=== PATIENT | male | born 1935 | race Caucasian/White ===

== ENCOUNTER 2022-05-29 06:47 | Emergency (ER) | payer OTHER, SELFPAY ==
[2022-05-29 07:10] VITALS: BP 166/90; PULSE 64; RESP 16; TEMP 36.2; O2SAT 96; BMI 28.9
[2022-05-29 07:21] VITALS: PULSE 68
--- NOTE | 2022-05-29 07:40 | PC.NURSE ---
Dr Quinonez with pt
--- NOTE | 2022-05-29 07:52 | XR_ITS ---
Final Report Patient: TIMO UGALDE Facility:?[facility] Patient ID:?[id number] Site Patient ID:?[id number]. Site :?[id number] Study:?XRay Knee Right 3 VIEW-05/29/2022 8:21:52 AM Ordering Physician:Jose Alberto Candelario Final Report: Indication: Right knee pain, heard pop while getting out of bow, recent meniscus surgery. Technique: Three views. Comparison: None. Findings/Impression: No fracture or malalignment. No joint space narrowing. Small patellar osteophyte. Small knee joint effusion. 8 millimeter linear radiopaque foreign body in the posterior lateral soft tissues posterior and lateral to the proximal fibula. Vascular calcification. Dictated by Piyush Lindsey MD @ 05/29/2022 8:36:52 AM (Electronic Signature)
--- NOTE | 2022-05-29 07:52 | US_ITS ---
Final Report Patient: TIMO UGALDE Facility:?[facility] Patient ID:?[id number] Site Patient ID:?[id number]. Site :?[id number] Study:?US Extremity Right DVT-05/29/2022 8:53:10 AM Ordering Physician:Jose Alberto Candelario Final Report: INDICATION: Leg pain and swelling. TECHNIQUE: Ultrasound venous duplex lower right extremity. Compression venous exam was performed using dinero-scale, color Doppler, and spectral Doppler analysis. COMPARISON: None. FINDINGS: Deep veins: Sonographic imaging demonstrates the right common femoral, deep femoral, superficial femoral, popliteal, posterior tibial and the contralateral left common femoral veins to be fully compressible with normal color Doppler blood flow. Superficial veins: Greater saphenous vein is fully compressible. Small fluid collection posterior to the knee likely small Flores cyst. IMPRESSION: No evidence of deep venous thrombosis. Dictated by Piyush Lindsey MD @ 05/29/2022 8:58:32 AM (Electronic Signature)
--- NOTE | 2022-05-29 07:55 | ED.GENADULT ---
HPI - General Adult General Time Seen by Provider: 07:55 Date Seen: 05/29/22 Chief complaint: Extremity Pain/Injury, Lower Stated complaint: Right Leg Injury Time Seen by Provider: 05/29/22 07:20 Source: patient Mode of arrival: ambulatory History of Present Illness HPI narrative: Patient is a 87-year-old white male presents after fishing in [place] he was getting out of his boat and hurt his right knee. It has been pain free when he sits but when he stands or walks he gets some pain in his upper calf and knee area. He denies fevers chills, shortness of breath, chest pain. He has not been sick with an illness. This seemed to be traumatic in nature, happen before he returned as mentioned getting in and out of a boat. No history of clotting problems. His chart was reviewed Onset (ago): day(s) Location: right and lower extremity Severity: moderate Quality: aching Relieving factors: other (Sitting relieves discomfort) Exacerbating factors: movement Related Data Home Medications Medication Instructions Recorded Confirmed famotidine 20 mg tablet mg 05/29/22 ferrous sulfate 325 mg (65 mg mg 05/29/22 iron) tablet (FeroSul) fluticasone propionate 50 INTRANASAL 05/29/22 mcg/actuation nasal spray,suspension metoprolol tartrate 25 mg tablet mg 05/29/22 nitroglycerin 0.4 mg sublingual mg 05/29/22 tablet omeprazole 20 mg capsule,delayed mg 05/29/22 release omeprazole 40 mg capsule,delayed mg 05/29/22 release simvastatin 40 mg tablet mg 05/29/22 tamsulosin 0.4 mg capsule mg PO 05/29/22 Allergies Allergy/AdvReac Type Severity Reaction Status Date / Time No Known Drug Allergies Allergy Verified 05/29/22 07:10 Review of Systems Narrative: Negative for cardiopulmonary GI neurologic skin other mentioned above. [facility] Social History Smoking Status: Unknown if ever smoked Second hand tobacco smoke exposure: No How often do you have six or more drinks on one occasion: Less than monthly AUDIT-C Alcohol total score: 1 Non-prescribed substance use: denies use Non-prescribed substance use details: n/a service: No Exam Narrative: Exam Narrative: Objective: The patient has right knee suprapatellar slight swelling, no effusion, mild right calf swelling posteriorly . he has a negative anterior drawer test. Good distal CMS. Const: Vital Signs, click to edit/add: Vital Signs - 24 hr 05/29/22 07:10 05/29/22 07:21 Temperature 97.2 F L Pulse Rate [Right Dorsalis Pedis] 68 Pulse Rate [Right Pulse Oximeter] 64 Respiratory Rate 16 Blood Pressure [Ri ght Upper Arm] 166/90 H Pulse Oximetry 96 Course Course Hospital Course: Patient will get an x-ray of his right knee and ultrasound of his right leg. Differential will include meniscal injury, ruptured Flores cyst, plantaris rupture, gastrocnemius strain or rupture. The patient has a negative ultrasound except for Flores cyst behind his knee, the patient also has a negative plain view of his knee by my review. He has a follow-up with Dr. Elam and scheduled for the 11 of June, he will ice and use some anti-inflammatory as needed. Given his age I do not think that walking aids or knee immobilizer be beneficial, and might risk is falling. He has were comfortable plan Vital Signs Vital signs: Initial Vital Signs Temperature 97.2 F L 05/29/22 07:10 Temperature Source Temporal Artery Scan 05/29/22 07:10 Pulse Rate 64 05/29/22 07:10 Pulse Rhythm 05/29/22 07:10 Respiratory Rate 16 05/29/22 07:10 Blood Pressure 166/90 H 05/29/22 07:10 Blood Pressure Mean 115 05/29/22 07:10 Blood Pressure Position Sitting 05/29/22 07:10 Pulse Oximetry 96 05/29/22 07:10 Oxygen Delivery Method 05/29/22 07:10 Vital Signs Temperature 97.2 F L 05/29/22 07:10 Pulse Rate 64 05/29/22 07:10 Respiratory Rate 16 05/29/22 07:10 Blood Pressure 166/90 H 05/29/22 07:10 Pulse Oximetry 96 05/29/22 07:10 Temperature 97.2 F L 05/29/22 07:10 Pulse Rate 68 05/29/22 07:21 Respiratory Rate 16 05/29/22 07:10 Blood Pressure 166/90 H 05/29/22 07:10 Pulse Oximetry 96 05/29/22 07:10 Discharge Plan Discharge Clinical Impression: Acute knee pain Patient Disposition: Home w/ Parent or Adult Activity Level: Weight Bearing as Tolerated Discharge Diet: Regular Prescriptions: No Action omeprazole 40 mg capsule,delayed release(DR/EC) 0RF simvastatin 40 mg tablet 0RF famotidine 20 mg tablet 0RF Label Comments: TAKE 1 TABLET BY MOUTH EVERY 12 HOURS tamsulosin 0.4 mg capsule PO 0RF ferrous sulfate [FeroSul] 325 mg (65 mg iron) tablet 0RF nitroglycerin 0.4 mg tablet, sublingual 0RF omeprazole 20 mg capsule,delayed release(DR/EC) 0RF fluticasone propionate 50 mcg/actuation spray,suspension INTRANASAL 0RF metoprolol tartrate 25 mg tablet 0RF Follow Up/Referrals: Provider,Not a Local [Primary Care Provider] - Stand Alone Forms: [facility] Info Instructions
--- NOTE | 2022-05-29 08:10 | PC.NURSE ---
Patient to radiology for xray and us.
--- NOTE | 2022-05-29 08:22 | PC.NURSE ---
pt in imaging
--- NOTE | 2022-05-29 08:53 | PC.NURSE ---
Dr Mora with pt
--- NOTE | 2022-05-29 09:17 | PC.NURSE ---
pt discharge reviewed, pt verbalizes understanding, will follow up as needed, pt left ER ambulatory
== END 2022-05-29 09:18 ==
PROVIDERS: Emergency Provider Family Medicine
DX: M25.561 Pain in right knee (principal); W22.8XXA Striking against or struck by other objects, initial encounter
CPT/HCPCS: 73562; 93971; 99283; 99284

== ENCOUNTER 2022-09-16 16:07 | Outpatient (CLI) | payer OTHER, SELFPAY ==
--- OUTSIDE RECORDS SUMMARY | 2022-09-16 07:54 | XMS_ITS ---
:1935 Author Care Team Providers Name Role Phone Gaby Leigh Primary Care Provider Unavailable Allergies Code Code System Name Reaction Severity Status Onset NKDA ? Medications Name Status Start Date Stop Date ? ? FeroSul 325 mg (65 mg iron) tablet Active ? Not available metoprolol tartrate 25 mg tablet Active ? Not available omeprazole 20 mg capsule,delayed release Active ? Not available TAKE 1 CAPSULE BY MOUTH EVERY DAY BEFORE A MEAL omeprazole 40 mg capsule,delayed release Active ? Not available simvastatin 40 mg tablet Active ? Not ravi ilable tamsulosin 0.4 mg capsule Active ? Not av ailable Problems No Known Problems Procedures Notes: none Results Lab Results Date Name Specimen Result Interpretation Description Value Range Status Address ? 02/15/2021 CMP, Serum High Glucose 109 mg/dL 65-99 [facility] or Plasma mg/dL Diagnos tics - [place]: [address] [address], [place] ? ? Normal Urea 15 mg/dL 7-25 Final [facility] Nitrogen mg/dL Diagnost ics - (BUN) [place]: [address] [facility]ra [address], [place] ? ? Normal Creatinine 0.99 mg/dL 0.70-1 Final Q uest .11 Diagnostic s - mg/dL [place]: [address] Administra [address], [place] ? ? Normal eGFR 70 > or = Final [facility] Non-afr. mL/min/1.73 60 [facility] [place] [facility] [address] /1.73m Administra tion, [address] [place] ? ? Normal eGFR 81 > or = Final [facility] mL/min/1.73 60 Diag nostics - [place] m[facility] mL/[facility]: [address] /1.73m Administra tion, [address] [place] ? ? ? BUN/creatin not 6-22 Final Ques t ine Ratio applicable (calc) [facility] - (calc) [place]: [address] Administra [address], [place] ? ? Normal Sodium 141 mmol/L 135-14 Final [facility] 6 Diagnostic s - mmol/L [place]: [address] Administra [address], [place] ? ? Normal Potassium 4.9 mmol/L 3.5-5. Final Qu est 3 Diagnostic s - mmol/L [place]: [address] Administra [address], [place] ? ? Normal Chloride 106 mmol/L 98-[address] mmol/L Diagnostic s - [place]: [address] Administra [facility], [place] ? ? Normal Carbon 27 mmol/L 18-30 Final [facility] Dioxide mmol/L Diagnosti cs - [place]: [address] Administra [facility], [place] ? ? Normal Calcium 9.1 mg/dL 8.6-10 Final [facility] .3 Diagnostic s - mg/dL [place]: [address] Administra [facility], [place] ? ? Normal Protein, 6.4 g/dL 6.1-8. Final [facility] Total 1 g/dL Diagnostic s - [place]: [address] Administra [facility], [place] ? ? Normal Albumin 4.3 g/dL 3.6-5. Final [facility] 1 g/dL Diagnostic s - [place]: [address] Administra [facility], [place] ? ? Normal Globulin 2.1 g/dL 1.9-3. Final [facility] (calc) 7 g/dL Diagnostic s - (calc) [place]: [address] Administra [facility], [place] ? ? Normal Albumin/geovanny 2.0 (calc) 1.0-2. Final [facility] bulin Ratio 5 Diagn ostics - (calc) [place]: [address] Administra [facility], [place] ? ? Normal Bilirubin, 0.5 mg/dL 0.2-1. Final Qu est Total 2 Diagnostic s - mg/dL [place]: [address] Administra [facility], [place] ? ? Normal Alkaline 56 U/L 35-144 Final [facility] Phosphatase U/L Diagn ostics - [place]: [address] Administra [facility], [place] ? ? Normal Ast 17 U/L 10-35 Final [facility] U/L Diagnostic s - [place]: [address] Administra [facility], [place] ? ? Normal Alt 18 U/L 9-46 [facility] U/L Diagnostic s - [place]: [address] Administra [facility], [place] 02/15/2021 CBC W/ Normal White Blood 7.3 3.8-10 Final [facility] Auto Diff Cell Count thousand/uL .8 Diagnostics - [facility]: [address] nd/uL Administra [facility]ion, [place] ? ? Normal Red Blood 5.33 4.33-5 Final [facility] Cell Count million/uL .82 Di [facility]: [address] n/uL Administra [facility]ion, [place] ? ? Normal Hemoglobin 15.6 g/dL 13.7-1 Final Qu est 7.7 Diagnostic s - g/dL [place]: [address] Administra [facility], [place] ? ? Normal Hematocrit 48.1 % 41.5-5 Final [facility] 3.8 % Diagnostic s - [place]: [address] Administra [facility], [place] ? ? Normal Mcv 90.2 fL 80.0-1 Final [facility] 00.0 Diagnostic s - fL [place]: [address] Administra [facility], [place] ? ? Normal Mch 29.3 pg 27.0-3 Final [facility] 3.0 pg Diagnostic s [facility]: [address] Administra [facility]ion, [place] ? ? Normal Mchc 32.4 g/dL 32.0-3 Final [facility] 6.0 Diagnostic s - g/dL [place]: [address] Administra [facility]ion, [place] ? ? High Rdw 15.1 % 11.0-1 Final [facility] 5.0 % Diagnostic s [facility]: [address] Administra [facility]ion, [place] ? ? Normal Platelet 173 140-40 Final [facility] Count thousand/uL 0 Diagn ostics - [facility]: [address] nd/uL Administra tion, [place] ? ? Normal Mpv 11.3 fL 7.5-12 Final [facility] .5 fL Diagnostic s - [place]: [address] Administra [facility], [place] ? ? Normal Absolute 5030 1500-7 Final [facility] Neutrophils cells/uL 800 [facility] - cells/ [place]: [address] uL Administra [facility]ion, [place] ? ? Normal Absolute 1533 850-39 Final [facility] Lymphocytes cells/uL 00 [facility] - cells/ [place]: [address] uL Administra [facility], [place] ? ? Normal Absolute 606 200-95 Final [facility] Monocytes cells/uL 0 Diagn ostics - cells/ [place]: [address] uL Administra [facility], [place] ? ? Normal Absolute 102 15-500 Final [facility] Eosinophils cells/uL cells/ [facility] - uL [place]: [address] Administra [facility], [place] ? ? Normal Absolute 29 cells/uL 0-200 Final Qu est Basophils cells/ Diagnos tics - uL [place]: [address] Administra [facility], [place] ? ? Normal Neutrophils 68.9 % ? Final Ques t Diagnostic s - [place]: [address] Administra [facility], [place] ? ? Normal Lymphocytes 21.0 % ? Final Ques t Diagnostic s - [place]: [address] Administra [facility], [place] ? ? Normal Monocytes 8.3 % ? Final [facility] Diagnostic s - [place]: [address] Administra [facility], [place] ? ? Normal Eosinophils 1.4 % ? Final Ques t Diagnostic s [facility]: [address] Administra [facility]ion, [place] ? ? Normal Basophils 0.4 % ? Final [facility] Diagnostic s - [place]: [address] Administra [facility], [place] ? Urinalysis ? Bld ca. 5-10 ? ? In-H ouse , Dipstick Result s: For Internal U se Only, Do N ot Delete/tashi ge ? ? ? Ubg norm. ? ? In-House Results: F or Internal U se Only, Do N ot Delete/tashi ge ? ? ? Kash neg. ? ? In-House Results: F or Internal U se Only, Do N ot Delete/tashi ge ? ? ? Pro 30 ? ? In-House Results: F or Internal U se Only, Do N ot Delete/tashi ge ? ? ? Nit negative ? ? In-House Results: F or Internal U se Only, Do N ot Delete/tashi ge ? ? ? Ket neg. ? ? In-House Results: F or Internal U se Only, Do N ot Delete/tashi ge ? ? ? Asc neg. ? ? In-House Results: F or Internal U se Only, Do N ot Delete/tashi ge ? ? ? Glu neg. ? ? In-House Results: F or Internal U se Only, Do N ot Delete/tashi ge ? ? ? Ph 6 ? ? In-House Results: F or Internal U se Only, Do N ot Delete/tashi ge ? ? ? Sg 1.025 ? ? In-House Results: F or Internal U se Only, Do N ot Delete/tashi ge ? ? ? Grace ca. 75 ? ? In-House Results: F or Internal U se Only, Do N ot Delete/tashi ge Past Encounters None recorded. Social History Tobacco Smoking Status Former Smoker Vaccine List Notes: utd Plan of Care Reminders Provider Appointments None recorded. ? ? Lab None recorded. ? ? Referral None recorded. ? ? Procedures None recorded. ? ? Surgeries None recorded. ? ? Imaging None recorded. ? ? Vitals Height Weight BMI Blood Pressure 5 ft 11 in 207 lbs 16 oz 29 kg/m2 132/84 mm[Hg]
--- OUTSIDE RECORDS SUMMARY | 2022-09-16 07:54 | XMS_ITS | Clinical Summary ---
:1935 Author Organization [facility] [place] [address] Care Team Providers Name Role Phone Brad Mendez MD Primary Care Provider [phone] Allergies No known active allergies Medications Medication Sig Dispensed Refills Start Date End Date Status LISINOPRIL 5 MG TAB Once a day 0 Active DAILY MULTIVITAMIN Once a day 0 Active TAB NITROGLYCERIN 0.4 MG 0.4 mg Sublingual 1 hx 0 04/21/2009 Active SUBLINGUAL TAB EVERY 5 MINUTES NEEDED SIMVASTATIN 80 MG TAB one tab by mouth 30 2 04/21/2009 Active with evening meal PLAVIX 75 MG TAB 1 a day 0 06/16/2009 Ac tive tamsulosin (FLOMAX) .take 2 capsules 180 capsule 3 04/19/2014 Active 0.4 mg daily(0.8mg) capsuleIndications: Slow urinary stream metoprolol Take 25 mg by 0 Activ e (LOPRESSOR) 25 mg mouth 2 times tablet daily. aspirin chewable 81 Take 81 mg by 0 Active mg chewable tablet mouth once daily with a meal. FLAXSEED OIL ORAL Take 1 capsule by 0 Active mouth 2 times daily. HYDROcodone-acetamino Take 1-2 tablets 30 tablet 0 05/23/2014 Active phen, 5-325 mg, by mouth every 4 (NORCO) per tablet hours if needed for Pain. . 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 Normal left ventricular size and function with normal wall motion Ejection fracti on is 55%. Patient exercised for 12 minutes 50 seconds on the Alejandro protocol with no symptoms or EKG changes. Coronary artery disease 04/21/2009 Overview: -VT 1999 -s/p PTCA of OM3 [address] [facility] l -neg treadmill 2001 -Asx positive stress nuclear scan - OM3 patent but proximal RCA severely dz'd => stented 04/21/09 Hypertension 04/21/2009 Dyslipidemia + high Lpa-45 04/21/2009 History of tobacco use 04/21/2009 Social History Tobacco Use Types Packs/Day Years Used Date Former Smoker Smokeless Tobacco: Never Used Tobacco Cessation: Counseling Given: Yes Comments: 1989 Alcohol Use Standard Drinks/Week Comments Yes 5.8 (1 standard drink = 0.6 oz pure alco hol) daily Alcohol Habits Answer Date Recorded How often do you have a drink containing alcohol? Not asked How many drinks containing alcohol do you have on a typical Not asked day when you are drinking? How often do you have six or more drinks on one occasion? No t asked Comment: daily 06/07/2014 Sex Assigned at Date Recorded Not on file Obstetrics History Last Filed Vital Signs Vital Sign Reading Time Taken Comments Blood Pressure 131/84 09/19/2015 10:06 AM CDT Pulse 54 09/19/2015 10:06 AM CDT Temperature 36.4 ??C (97.6 ??F) 09/19/2015 10:06 AM CDT Respiratory Rate 18 05/23/2014 3:45 PM CDT Oxygen Saturation 98% 09/19/2015 10:06 AM CDT Inhaled Oxygen Concentration - - Weight 95.5 kg (210 lb 8 oz) 09/19/2015 10:06 AM CDT Height 180.3 cm (5' 11) 09/19/2015 10:06 AM CDT Body Mass Index 29.36 09/19/2015 10:06 AM CDT Plan of Treatment Health Maintenance Due Date Last Done Comments COVID-19 vaccine series (#1) 1935 Tdap 1948 Depression screening for age 12+ 1949 BMI (ht and wt on same day) for age 18+ 1955 Tetanus booster 1957 Zoster (shingles) series for age 50+ (1 of 2) 1987 Medicare Wellness for age 65+ 2002 Pneumococcal series for age 65+ (1 - PCV) 2002 Influenza for age 65+ 08/01/2022 Results Not on filefrom Last 3 Months Insurance Payer Benefit Plan / Subscriber ID Effective Dates Phone Addre ss Type Group HUMANA GOLD MR HUMANA CHOICE [id number] 2013-Present [address] [address] [place] [address] Advance Directives Documents on File Type Date Recorded Patient Physician/Internist Explanati on Healthcare Directive 05/27/2014 2:23 PM 10/18/99 Healthcare Directive 05/23/2014 7:53 AM 10/18/99 Latest Code Status on File Code Status Date Activated Date Inactivated Comments Full Code 04/21/2009 8:24 AM 04/22/2009 12:52 PM Care Teams Certified [employer] Engineer Relationship Specialty Start Date End Date Brad Mendez MD PCP - General Family Practice 05/17/14
[2022-09-16 14:06] LABS: Albumin* 3.8 g/dL (3.3-5.0); Chloride* 105 mmol/L (96-114); Sodium* 140 mmol/L (135-149)
[2022-09-16 14:07] LABS: Potassium* 4.5 mmol/L (3.6-5.1)
[2022-09-16 14:08] LABS: Cholesterol* 157 mg/dL (90-199)
[2022-09-16 14:09] LABS: Alanine Aminotransferase* 15 U/L (4-50); Alkaline Phosphatase* 77 U/L (40-150); Aspartate Amino Transferase* 21 U/L (12-35); Bilirubin Total* 0.7 mg/dL (0.1-1.5); Blood Urea Nitrogen* 16 mg/dL (7-30); Carbon Dioxide* 29 mmol/L (20-32); Estimated Glomerular Filt Rate 74 ml/min; Glucose* 111 mg/dL (60-115); Triglycerides* 97 mg/dL (40-149)
[2022-09-16 14:10] LABS: Calcium* 8.9 mg/dL (8.4-10.6); HDL Cholesterol* 55 mg/dL (>=40); LDL Cholesterol Calculated 83 mg/dL (<100)
[2022-09-16 14:34] LABS: PSA Screen* 6.61 ng/mL (0.10-4.00)
== END 2022-09-16 16:08 | disposition home or self-care (01) ==
PROVIDERS: PCP Physician Assistant Medical; Visit Provider Physician Assistant Medical
DX: E78.5 Hyperlipidemia, unspecified (principal); I25.10 Atherosclerotic heart disease of native coronary artery without angina pectoris; C61 Malignant neoplasm of prostate; Z12.5 Encounter for screening for malignant neoplasm of prostate
CPT/HCPCS: 80053; 80061; 84153

== ENCOUNTER 2023-03-26 10:43 | Outpatient (CLI) | payer OTHER, SELFPAY | END 2023-03-26 10:44 | disposition home or self-care (01) | LOC: FRMREF 10:45 | PROVIDERS: PCP Physician Assistant Medical; Visit Provider Family Medicine | DX: I10 Essential (primary) hypertension (principal); R53.83 Other fatigue; E78.5 Hyperlipidemia, unspecified; D50.9 Iron deficiency anemia, unspecified | CPT/HCPCS: 80053; 82043; 82570; 84443 ==

== ENCOUNTER 2023-04-04 10:13 | Outpatient (CLI) | payer OTHER, SELFPAY ==
--- NOTE | 2023-04-04 11:00 | CRLHL7_ITS ---
For Patients: As a result of the Century Cures Act, medical imaging exams and procedure reports are released immediately into your electronic medical record. You may view this report before your referring provider. If you have questions, please contact your health care provider. INDICATION: Increased fatigue and weakness TECHNIQUE: Noncontrast axial CT of the head is submitted. Compared to prior study from July 17, 2019. FINDINGS: Stable mild cerebral atrophy. The ventricles, sulci and gyri are of normal size, shape and contour for age and degree of atrophy. Midline structures are centrally located. No convincing evidence of suspicious intra- or extra-axial fluid collections. Mild patchy regions of decreased attenuation within the periventricular and subcortical white matter of both cerebral hemispheres. IMPRESSION: 1. Stable no radiographic evidence of acute intracranial abnormalities. 2. Stable mild cerebral atrophy. 3. Mild supratentorial white matter changes that are non-specific, but statistically most likely related to chronic small vessel ischemic disease. Please note that all CT scans at this facility use dose modulation, iterative reconstruction, and/or weight-based dosing when appropriate to reduce radiation dose to as low as reasonably achievable. Dictated by Festus Cifuentes MD @ 04/04/2023 5:19:51 PM (Electronically Signed)
== END 2023-04-04 10:14 | disposition home or self-care (01) ==
LOC: CT 10:14
PROVIDERS: PCP Family Medicine; Visit Provider Family Medicine
DX: R53.1 Weakness (principal); R53.83 Other fatigue; G93.89 Other specified disorders of brain
CPT/HCPCS: 70450

== ENCOUNTER 2023-08-19 14:51 | Outpatient (CLI) | payer OTHER, SELFPAY ==
--- NOTE | 2023-08-19 15:00 | CRLHL7_ITS ---
For Patients: As a result of the Century Cures Act, medical imaging exams and procedure reports are released immediately into your electronic medical record. You may view this report before your referring provider. If you have questions, please contact your health care provider. Indication: PULMONARY NODULE Technique: Noncontrast CT chest Please note that all CT scans at this facility use dose modulation, iterative reconstruction, and/or weight-based dosing when appropriate to reduce radiation dose to as low as reasonably achievable. Comparison: 07/17/2019 Findings: Atherosclerotic changes in the aorta. Mild atrophy of the pancreas. Stable simple cyst within the left hepatic lobe measuring 3.9 cm. Hiatal hernia measuring 9.0 cm again noted. No mediastinal, hilar or axillary adenopathy. Dense calcifications within the coronary arteries. Old fracture of the medial left clavicle. Chronic changes to the right anterior ribcage. No vertebral body compression fracture. Chronic deformity of the mid sternum. Stable 6 millimeter nodule within the right mid lung. Mild fibrotic changes noted along with emphysema. No pleural effusion or infiltrate. No CHF. Impression: Stable 6 millimeter nodule within the right lung. Mild emphysema and fibrosis. Hiatal hernia is similar. No adenopathy. Please note that all CT scans at this facility use dose modulation, iterative reconstruction, and/or weight-based dosing when appropriate to reduce radiation dose to as low as reasonably achievable. Dictated by Gonzalo Valerio MD @ 08/20/2023 10:47:10 AM (Electronically Signed)
== END 2023-08-19 14:52 | disposition home or self-care (01) ==
PROVIDERS: PCP Family Medicine; Visit Provider Urology
DX: R91.1 Solitary pulmonary nodule (principal); K44.9 Diaphragmatic hernia without obstruction or gangrene
CPT/HCPCS: 71250

== ENCOUNTER 2023-10-09 13:44 | Outpatient (CLI) | payer OTHER, SELFPAY | END 2023-10-09 13:45 | disposition home or self-care (01) | LOC: NFLDREF 10-14 19:49 | PROVIDERS: PCP Family Medicine; Referring Provider Family Medicine; Visit Provider Family Medicine | DX: I10 Essential (primary) hypertension (principal); I25.10 Atherosclerotic heart disease of native coronary artery without angina pectoris | CPT/HCPCS: 80053; 80061; 82043; 82570 ==

== ENCOUNTER 2023-10-16 15:40 | Outpatient (CLI) | payer OTHER, SELFPAY | END 2023-10-16 15:41 | disposition home or self-care (01) | LOC: FRMREF 15:41 | PROVIDERS: PCP Family Medicine; Visit Provider Dermatology | DX: R21 Rash and other nonspecific skin eruption (principal) | CPT/HCPCS: 86618 ==

== ENCOUNTER 2024-03-11 09:31 | Outpatient (CLI) | payer OTHER, SELFPAY ==
--- OUTSIDE RECORDS SUMMARY | 2024-03-12 05:54 | XMS_ITS | Referral Summary ---
Author Name Unknown Organization [facility] Address [address] [place] [address] Care Team Providers Care Licensed And Certified Midwife Name Role Phone Elsewhere, Pcp Primary Care Provider Unavailabl e Source Comments Patient records contain information from all sites at [facility]. For routine questions regarding patient records, call [phone] during business hours, M-F 8:00 AM - 5:00 PM Central Time. Record requests for emergency care only can be directed to [phone] at any time.[facility] Social History Tobacco Use Types Packs/Day Years Used Date Smoking Tobacco: Never Assessed Nutrition Answer Date Recorded Nutrition: EVOO Fat Source Unknown 01/21 Nutrition: Servings of Fruits/Vegetables per Day Not on file 2021 Dental Answer Date Recorded Dental: Regular Dentist Unknown 01/21/20 Sex and Gender Information Value Date Recorded Sex Assigned at Not on file Gender Identity Not on file Sexual Orientation Not on file Plan of Treatment Upcoming Encounters Date Type Department Care Team (Late st Contact Info) Description 03/12/2024 10:00 AM CDT Diagnostic Department of Otorhinolaryngology in [place], [place] [address] [place] [id number] Shirley Mcgarry Au.D., C.C.C.-A [address] [place] [id number] Care Teams Licensed And Certified Midwife Relationship Specialty Start Date End Date Elsewhere, Pcp PCP - General Family Medicine 01/15/19
--- OUTSIDE RECORDS SUMMARY | 2024-03-12 05:54 | XMS_ITS | Continuity of Care Document ---
Author Name Unknown Organization [facility] Address [address] [address] [place] [address] Phone Care Team Providers Care Order Entry Specialist Name Role Phone Yessy Davis MD Unavailable Unavailable Allergies, Adverse Reactions, Alerts Substance Reaction Status Criticality No Known Allergies Active No Inform ation Medications Medication Instructions Dosage Effective Dates (start - stop) Status Comments OMEPRAZOLE DR 20 MG CAPSULE TAKE 1 CAPSULE BY MOUTH EVERY DAY BEFORE A MEAL - Active simvastatin 20 mg tablet take 1 tablet by oral route every day in the evening 20 MG - Active nitroglycerin 0.[address] 1 tablet by sublingual route every 5 minutes as needed for chest pain. Do not exceed 3 doses in 15 minutes. 0.4 MG - Active metoprolol tartrate 25 mg tablet take 1 tablet by oral route 2 times every day 25 MG - Active tamsulosin 0.4 mg capsule take 2 capsule by oral route every day 0.8 MG - Active aspirin 81 mg tablet,delayed release take 1 tablet by oral route every day 81 MG - Active Multivitamin (unknown strength) Not Available - Active FIBER (unknown strength) Not Available - Active OMEGA-3 (unknown strength) Not Available - Active omeprazole 20 mg capsule,delayed release take 1 capsule by oral route every day before a meal 20 MG - No Longer Active Procedures Procedure Date Telephone E&M III 21-30 Min CORINE Advance Directives Directive Yes / No Effective Date File Name No Information Encounters Encounter Description Practice Location Reason(s) For Visit Diagnoses Date Provider Providers Copied on Encounter [facility], [address] [address], [place], [place], [id number], [place] tel:[phone] [facility] No Information 1 Susan Krishnamurthy . [address] [facility] [facility] [address], [place], [place], [id number] , [place]. tel: [phone] Telephone E&M III 21-30 Min CORINE [facility], [address] [address], [place], [place], [id number], [place] tel:[phone] [facility] GI Symptoms or Concerns (chief complaint) Iron deficiency anemia due to chronic blood lossHiatal hernia 0 Susan Krishnamurthy . [address] [facility] [facility] [address], [place], [id number] , [place]. tel: [phone] [facility], [address] [address], [place], [place], [id number], [place] tel:[phone] [facility] No Information 0 Tran Angel. [address] [facility] [facility] [address], [place], [place], [id number] , [place]. tel: [phone] Family History Family Member Type Diagnosis Age At Onset No Information Immunizations Vaccine Date Status Comments influenza, high dose seasona l, preservative-free administered Note: [facility] bi-direct ional interface ; Source: Other Registry zoster vaccine recombinant administered N ote: [facility] bi-directional interface ; Source: Other Registry zoster vaccine recombinant administered N ote: [facility] bi-directional interface ; Source: Other Registry influenza, high dose seasona l, preservative-free administered Note: [facility] bi-direct ional interface ; Source: Other Registry influenza, high dose seasona l, preservative-free administered Note: [facility] bi-direct ional interface ; Source: Other Registry Fluzone Quad 6mo or older administered Note: [facility] bi-direct ional interface ; Source: Other Registry Prevnar 13 administered Note: [facility] bi-d irectional interface ; Source: Other Registry Fluzone Quad 6mo or older administered Note: [facility] bi-direct ional interface ; Source: Other Registry tetanus toxoid, reduced diphtheria toxoid, and acellular pertussis vaccine, adsorbed administered Note: [facility] b i-directional interface ; Source: Other Registry Influenza, seasonal, injecta ble, preservative free administered Note: [facility] bi-direct ional interface ; Source: Other Registry Influenza, seasonal, injecta ble, preservative free administered Note: [facility] bi-direct ional interface ; Source: Other Registry Influenza, seasonal, injecta ble, preservative free administered Note: [facility] bi-direct ional interface ; Source: Other Registry influenza virus vaccine, unspecified formulation administered Note: [facility] bi-di rectional interface ; Source: Other Registry Novel [id number], all formulations administered Note: [facility] bi-direct ional interface ; Source: Other Registry Payers Payer name Insurance type Covered green party ID Authoriza tion(s) [employer] Choice 16 [id number] Social History Type Description Quantity Date Captured Comments Sex Male Smoking Status No Information Chief Complaint And Reason For Visit No Information Reason For Referral Reason For Referral No Information History Of Present Illness Encounter Date Complaint History Of Prese nt Illness GI Symptoms or Concerns This is an 85-year-old man who presents as a referral from Brad Mendez in consultation for iron deficiency anemia. He has a history of multiple comorbidities including coronary artery disease, status post myocardial infarction, prostate cancer, history of bilateral pneumothorax, prior diverticulitis. He reports returning from [place] this spring with fatigue and dyspnea. He was found to have a hemoglobin of 10 with a mean corpuscular volume of 81. Prior value was reportedly 14. He has not had anemia before. He has not noticed any gross gastrointestinal bleeding. He denies any new abdominal symptoms. Specifically, he does not have nausea, vomiting, heartburn, dysphagia, early satiety or postprandial pain. Iron studies were checked and he was found to have ferritin of 10, iron level of 37, total iron binding capacity of 435 and a 9% iron saturation. He had negative testing for H. pylori infection. He underwent an upper endoscopy through [facility] showing on May 01 Functional Status Date Functional Assessmen t No Information Instructions Date Instruction Additional Infor matthew I recommend starting omeprazole 20 mg daily for 3 months, together with iron supplement. If he has improvement or resolution of the anemia, then I would continue long-term omeprazole therapy. I am doubtful that this hernia will resolve over time. Most of the time, it can slide up and down and therefore not always be present on imaging. I certainly do not recommend surgery for the hernia.If the anemia worsens over time, we could consider capsule endoscopy to evaluate for small bowel source. I would also consider repeat colonoscopy, for the aforementioned reasons. I have not arranged for followup appointment as I will wait to hear from the patient or his primary provider as to the results of the blood counts in 3 months.Thank you for involving me in his care. Related to Iron deficiency anemia due to chronic blood loss Assessments Type Assessment Date No Information Patient Care Teams Name Effective Dates (start - stop) Status Members No Information
--- OUTSIDE RECORDS SUMMARY | 2024-03-12 05:54 | XMS_ITS | Clinical Summary ---
Author Name Unknown Organization [facility] Address [address] [place] [address] Care Team Providers Care Autocutter Name Role Phone Elsewhere, Pcp Primary Care Provider Unavailabl e Source Comments Patient records contain information from all sites at [facility]. For routine questions regarding patient records, call [phone] during business hours, M-F 8:00 AM - 5:00 PM Central Time. Record requests for emergency care only can be directed to [phone] at any time.[facility] Social History Tobacco Use Types Packs/Day [...] AM CDT Diagnostic Department of Otorhinolaryngology in [place], [place] [address] [place] [id number] Shirley Mcgarry Au.D., C.C.C.-A [address] [place] [address] Health Maintenance Due Date Last Done Comments Pneumococcal vaccine (65+ ye ars) (2 of 2 - PPSV23 or PCV20) 09/22/2016 09/22/2015 Depression Screening (Annual PHQ-2) 12/01/2023 Fall Risk Screen (Annual) 12/01/2023 DTaP,Tdap,and Td Vaccines (2 - Td or Tdap) 05/17/2024 05/17/2014 Zoster Vaccines Completed 07/08/2019, 05/08/2019 Influenza Vaccine Completed 09/02/2023, , 09/01/2021, Additional history exists COVID-19 Vaccine Completed 10/16/2023, , 09/01/2021, Additional history exists Care Teams Autocutter Relationship Specialty Start Date End Date Elsewhere, Pcp PCP - General Family Medicine 01/15/19
--- OUTSIDE RECORDS SUMMARY | 2024-03-12 05:54 | XMS_ITS | Referral Summary ---
Author Name Unknown Organization [facility] Address [address] [place] [address] Care Team Providers Care Chief Chemist Name Role Phone Md Elisha Primary Care Provider Unavailabl e Allergies No known active allergies Social History Tobacco Use Types Packs/Day Years Used Date Smoking Tobacco: Never Assessed Sex and Gender Information Value Date Recorded Sex Assigned at Not on file Gender Identity Not on file Sexual Orientation Not on file Plan of Treatment Not on file Care Teams Chief Chemist Relationship Specialty Start Date End Date Md Elisha PCP - General 01/07/23
--- OUTSIDE RECORDS SUMMARY | 2024-03-12 05:54 | XMS_ITS | Clinical Summary ---
Author Name Unknown Organization [facility] Address [place], [place] [address] Care Team Providers Care Tab Cutting Machine Operator Name Role Phone Brad Mendez MD Primary Care Provider [phone] Allergies No known active allergies Medications Medication Sig Dispensed Refills Start Date End Date Status LISINOPRIL 5 MG TAB Once a day Activ e DAILY MULTIVITAMIN TAB Once a day Active NITROGLYCERIN 0.4 MG SUBLINGUAL TAB 0.4 mg Sublingual EVERY 5 MINUTES NEEDED 1 hx 0 04/21/2009 Active SIMVASTATIN 80 MG TAB one tab by mouth with evening meal 30 2 04/21/2009 Active PLAVIX 75 MG TAB 1 a day 0 06/16/2009 Active tamsulosin (FLOMAX) 0.4 mg capsuleIndications: Slow urinary stream .take 2 capsules daily(0.8mg) 180 capsule 3 04/19/2014 Active metoprolol (LOPRESSOR) 25 mg tablet Take 25 mg by mouth 2 times daily. Active aspirin chewable 81 mg chewable tablet Take 81 mg by mouth once daily with a meal. Active FLAXSEED OIL ORAL Take 1 capsule by mouth 2 times daily. Active HYDROcodone-acetami nophen, 5-325 mg, (NORCO) per tablet Take 1-2 tablets by mouth every 4 hours if needed for Pain. . 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 Normal left ventricular size and function with normal wall motion Ejection fraction is 55%. Patient exercised for 12 minutes 50 seconds on the Alejandro protocol with no symptoms or EKG changes. Coronary artery disease 04/21/2009 Overview: -[place] 1999 -s/p PTCA of OM3 2000 at [facility] -neg treadmill 2001 -Asx positive stress nuclear scan - OM3 patent but proximal RCA severely dz'd => stented 04/21/09 Hypertension 04/21/2009 Dyslipidemia + high Lpa-45 04/21/2009 History of tobacco use 04/21/2009 Social History Tobacco Use Types Packs/Day Years Used Date Smoking Tobacco: Former Smokeless Tobacco: Never Tobacco Cessation:Counseling Given: Yes Comments:1989 Alcohol Use Standard Drinks/Week Comments Yes 5.8 (1 standard drink = 0.6 oz p ure alcohol) daily Social Connections Answer Date Recorded Frequency of Communication with Friends and Fami ly Not on file 12/01/2021 Financial Resource Strain Answer Date R ecorded Difficulty of Paying Living Expenses Not on file 12/01/2021 Difficulty of Paying Living Expenses Not on file 12/01/2021 Sex and Gender Information Value Date Recorded Sex Assigned at Not on file Gender Identity Not on file Sexual Orientation Not on file Obstetrics History Last Filed Vital Signs Vital Sign Reading Time Taken Comments Blood Pressure 131/84 09/19/2015 10:06 AM CDT Pulse 54 09/19/2015 10:06 AM CDT Temperature 36.4 ??C (97.6 ??F) 09/19/2015 10:06 AM C DT Respiratory Rate 18 05/23/2014 3:45 PM CDT Oxygen Saturation 98% 09/19/2015 10:06 AM CDT Inhaled Oxygen Concentration - - Weight 95.5 kg (210 lb 8 oz) 09/19/2015 10:06 AM CDT Height 180.3 cm (5' 11) 09/19/2015 10:06 AM CDT Body Mass Index 29.36 09/19/2015 10:06 AM CDT Plan of Treatment Health Maintenance Due Date Last Done Comments Tdap 1948 Depression screening for age 12+ 1949 BMI (ht and wt on same day) for age 18+ 1955 Tetanus booster 1957 Zoster (shingles) series for age 50+ (1 of 2) 01/21/19 87 Medicare Wellness for age 65+ 2002 Pneumococcal series for age 65+ (1 of 1 - PCV) 002 COVID-19 vaccine series (1 - 2022- season) 3 Influenza for age 65+ 08/01/2024 Advance Directives Documents on File Type Date Recorded Patient Board Certified Behavioral Analyst Expl anation Healthcare Directive 05/27/2014 2:23 PM Healthcare Directive 05/23/2014 7:53 AM * Full Code (Latest Code Status on File) Date Activated Date Inactivated Comments 04/21/2009 8:24 AM 04/22/2009 12:52 PM Care Teams Tab Cutting Machine Operator Relationship Specialty Start Date End Date Brad Mendez MD PCP - General Family Practice 05/17/14
--- OUTSIDE RECORDS SUMMARY | 2024-03-12 05:54 | XMS_ITS | Clinical Summary ---
Author Name Unknown Organization [facility] [place] [facility] Address [address] [place] [address] Care Team Providers Care Mower Sharpener Name Role Phone None, Primary Care Provider Unavailabl e Allergies No known active allergies Social History Tobacco Use Types Packs/Day Years Used Date Smoking Tobacco: Never Assessed Sex and Gender Information Value Date Recorded Sex Assigned at Not on file Gender Identity Not on file Sexual Orientation Not on file Plan of Treatment Health Maintenance Due Date Last Done Comments Yearly Review of HCD 1987 RSV 60+ Yrs (1 - 1-dose 60+ series) 1997 Pneumococcal 65+ (2 of 2 - P PSV23 or PCV20) 09/22/2016 09/22/2015 COVID-19 Vaccine (2022-2 4 season) 2023 09/25/2022, 09/01/2021, 01/30/2021, Additional history exists Adult Tetanus Booster 05/17/2024 05/17/2014 Influenza Vaccine (Season Ended) 2024 09/01/2021, 09/19/2020, 09/13/2019, Additional history exists Zoster Vaccine Completed 07/08/2019, 05/08/2019 Care Teams Mower Sharpener Relationship Specialty Start Date End Date None, PCP - General 01/07/23
--- OUTSIDE RECORDS SUMMARY | 2024-03-12 05:54 | XMS_ITS ---
Author Name Unknown Organization [facility] Address [address] [place] [address] Care Team Providers Care Historic Sites Supervisor Name Role Phone Unavailable Unavailable Unavailable Surgery Details Not on file Complications Check Surgery Details section. Procedure Estimated Blood Loss Check Surgery Details section. Procedure Findings Check Surgery Details section. Procedure Specimens Taken Check Surgery Details section.
--- OUTSIDE RECORDS SUMMARY | 2024-03-12 05:54 | XMS_ITS | Data Portability ---
Author Name Unknown Address [address] [place] [address] Phone [phone] Organization [facility], [facility] Address [address] [place] [address] Assessment Encounter Date Assessment Date Assessment LastModified by Organization Details LastModified Time 10/29/2023 10/29/2023 Patient presents for the following blood tests: PSA Patient drawn without difficulty and sample kept for in-house testing. Drawn by: LOS Montes De Oca574 Not available 10/29/2023 12:02:48 Plan of Treatment Reminders Order Date Submit Date Provider Last Modified By Organization Details Last Modified Time Details Appointments ESTABLI SHED 10 2023 10:20A M Jon espinosa MD Not available Not available Not available Lab PSA, serum or plasma 2022 023 [facility]is [facility], [address], [address], [place], [address], Ph 10/29/2023 12:15:00 urinaly sis, dipstic k 2022 023 dtortorelis [facility], [address], [address], [place], [address], Ph [phone] 10/29/2023 12:14:58 PSA, serum or plasma 2022 023 dtortorelis [facility], [address], [place], [address], 07/28/2023 16:02:56 Referral None recorde d. Procedures bladder scan (PROC) 2022 023 dtjavon [facility], [address], [address], [place], [address], Ph 10/29/2023 12:14:57 Surgeries None recorde d. Imaging CT, chest, w/o contras t 2022 023 [facility], [address] [place], [address], 08/20/2023 11:49:30 Medication Orders Flomax 0.4 mg capsule 2022 [address] [facility] (Now [facility]), [address], [place], [address], 10/29/2023 12:15:19 Eligard 45 mg (6 month) subcuta neous syringe [facility] [address], [place], [address], 01/27/2023 12:10:25 Patient TargetsNo targets recorded. Patient Instructions Encounter Date Encounter Id Patient Instructions Last Modified By Organization Details Last Modified Time 10/29/2023 [id number] Prostate cancer diagnosed March 2014 but lost to follow-up Cryosurgery was performed 2013 PSA 0.48 10/29/2023 PSA 0.23 07/28/2023 ---ELIGARD--6MON TH INJECTION GIVEN -- 01/27/2023 [facility] PSA 6.61 September 18, 2022 PSA 5.71 March 04, 2022 PSA 4.4 31 Mar 2021 PSA 4.2 08 January 2021 PSA 4.11 Apr 2020 PSA 3.March PSA 3.05 March 2018 PSA 2.23 April 19 PSA 0.October PSA 5.0 07 March 2014 PSA 6.22 October 2013 slow stream--ON FLOMAX PET CT PYLARIFY 01/20/2023 UPTAKE IN PROSTATE NO GROSS METS SMALL 6MM PULMONARY NODULE CT CHEST08/19/2023-- -6MM NODULE--NO CHANGE PLAN PT ELECTS INTERMITTENT HORMONE DEPRIVATION THERAPY---NO ELIGARD TODAY CONTINUE FLOMAX 0.4 MG BID FOLLOW UP BLADDER SCAN ///CYSTO--POSSIB LE ELIGARD---PSA 6 MONTHS---[facility]ICE dtortorelis Not available 10/29/2023 12:14:15 07/28/2023 [id number] Prostate cancer diagnosed March 2014 but lost to follow-up Cryosurgery was performed 2013 PSA 0.23 07/28/2023 ---ELIGARD--6MON TH INJECTION GIVEN -- 01/27/2023 [facility] PSA 6.61 September 18, 2022 PSA 5.71 March 04, 2022 PSA 4.4 31 Mar 2021 PSA 4.2 08 January 2021 PSA 4.11 Apr 2020 PSA 3.March PSA 3.05 March 2018 PSA 2.April 19 PSA 0.October PSA 5.0 07 March 2014 PSA 6.22 October 2013 slow stream--ON FLOMAX PET CT PYLARIFY 01/20/2023 UPTAKE IN PROSTATE NO GROSS METS SMALL 6MM PULMONARY NODULE PLAN CT CHEST 3 MONTHS PSA 3 MONTHS ---OCT 2023 FOLLOW UP BLADDER SCAN ///CYSTO--POSSIB LE ELIGARD dtortorelis Not available 07/28/2023 16:19:52 01/27/2023 [id number] Prostate cancer diagnosed March 2014 but lost to follow-up Cryosurgery was performed 2013 PSA 6.61 September 18, 2022 PSA 5.71 March 04, 2022 PSA 4.4 31 Mar 2021 PSA 4.2 08 January 2021 PSA 4.11 Apr 2020 PSA 3.March PSA 3.05 March 2018 PSA 2.23 April 19017 PSA 0.October PSA 5.0 07 March 2014 PSA 6.22 October [address] PYLARIFY 01/20/2023 UPTAKE IN PROSTATE NO GROSS METS SMALL 6MM PULMONARY NODULE PLAN CT CHEST 6 MONTHS ELIGARD--6MONTH INJECTION GIVEN TODAY -- 01/27/2023 [facility] FOLLOW UP BLADDER SCAN PVR CYSTO AND PSA 6 MONTHS dtortorelis Not available 01/28/2023 06:25:27 01/24/2023 [id number] PHONE VISIT Prostate cancer diagnosed March 2014 but lost to follow-up Cryosurgery was performed 2013 PSA 6.61 September 18, 2022 PSA 5.71 March 04, 2022 PSA 4.4 31 Mar 2021 PSA 4.2 08 January 2021 PSA 4.11 Apr 2020 PSA 3.March PSA 3.05 March 2018 PSA 2.23 April 19, PSA 0.October PSA 5.0 07 March 2014 PSA 6.22 October [address] PYLARIFY 01/20/2023 UPTAKE IN PROSTATE NO GROSS METS SMALL 6MM PULMONARY NODULE PLAN CT CHEST 6 MONTHS [facility] ED HAS HANDOUT ---FOLLOW UP Friday01/27/2023 [facility] FOLLOW UP BLADDER SCAN PVR CYSTO AND PSA 15 MIN PHONE DISCUSSION [email or web address] Not available 01/29/2023 22:40:17 10/17/2022 [id number] Prostate cancer diagnosed March 2014 but lost to follow-up Cryosurgery was performed 2013 PSA 6.61 September 18, 2022 PSA 5.71 March 04, 2022 PSA 4.4 31 Mar 2021 PSA 4.2 08 January 2021 PSA 4.11 Apr 2020 PSA 3.March PSA 3.05 March 2018 PSA 2.23 April 19 PSA 0.October PSA 5.0 07 March 2014 PSA 6.22 October 2013 slow stream PLAN PET CT SCAN FOLLOW UP BLADDER SCAN PVR CYSTO AND PSA [email or web address] Not available 10/17/2022 12:22:25 Reason for Referral None Reported. Results Created Date Observation Date Name Description Value Unit Range Abnormal Flag LastModifiedBy Organization Detail LastModifiedTime 07/28/2007/28/2023 PSA, serum or plasm a PSA 0.23 ng/mL 0-4.0 Not Available [facility] [address], [place], [address], 07/28/2023 16:02:34 10/29/20 23 10/29/2023 bladd er scan (PROC ) Volume (in mL) 95 Not Available Melecio schaefer [address], [place], [address], Ph [phone] 10/29/2023 10:34:40 10/29/20 23 10/29/2023 urina lysis , dipst ick BLO small Not Available [facility] [address], [place], [address], Ph 10/29/2023 10:34:37 10/29/20 23 10/29/2023 urina lysis , dipst ick pH 6.0 Not Available [facility] [address], [place], [address], Ph 10/29/2023 10:34:37 10/29/20 23 10/29/2023 urina lysis , dipst ick BOB small Not Available [facility] [address], [place], [address], Ph 10/29/2023 10:34:37 10/29/20 23 10/29/2023 PSA, serum or plasm a PSA 0.48 0-4.0 Not Available [facility] [address], [place], [address], Ph 10/29/2023 10:34:34 01/20/20 23 01/20/2023 PET-C T, whole body scan No observ ation record ed. [email or web address] [facility] [address], [place], [address], 01/22/2023 14:58:04 08/20/20 23 08/19/2023 CT, chest , w/o contr ast No observ ation record ed. [facility] [address] [facility], [place], [address], 09/04/2023 15:01:12 Result Notes None recorded. 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 13 607.84 : IMPOTENCY- ORGANIC Not Available [facility] 05/18/2020 01:57:29 Slowing of urinary stream Active 03/22/20 13 788.62 : SLOW STREAM Not Available [facility] 05/18/2020 01:57:29 Prostate specific antigen above reference range Active 03/22/20 13 790.93 : ELEVATED PSA Not Available [facility] 05/18/2020 01:57:29 Malignant tumor of prostate Active 10/17/20 Jon Matthews MD [address], [place], [address], [facility] 10/17/2022 12:23:04 Nodule of lung Active 07/28/20 Jon Matthews MD [address] [place] [address],[address], [place], [address], [facility] 07/28/2023 16:20:20 Problem Notes None recorded. 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 Abraham [address] [place] [address], [address], 01/22/2023 14:58:04 08/19/2023 CT, chest, w/o contrast completed [facility] [address] [place], [address], 09/04/2023 15:01:12 Procedure Notes None recorded. Medical Equipment None Reported. Allergies No known drug allergies Medications Name Sig Start Date Stop Date Status Note LastModified by Organization Details LastModified Time losartan 50 mg tablet TAKE 1 TABLET BY MOUTH DAILY active Not Available Not Available No t Available amoxicillin 500 mg capsule TAKE ONE CAPSULE BY MOUTH THREE TIMES DAILY FOR 7 DAYS 07/28 completed Not Available Not Available Not Available Flomax 0.4 mg capsule Take 1 capsule twice a day by oral route. 2022 active Not Available Not Available Not Avai lable benzonatate 200 mg capsule TAKE ONE CAPSULE BY MOUTH EVERY 8 HOURS 07/28 completed Not Available Not Available Not Available prednisone 20 mg tablet TAKE 1 TABLET BY MOUTH DAILY 07/28 completed Not Available Not Available Not Available omeprazole 40 mg capsule,del ayed release active Not Available Not Available Not Available simvastatin 40 mg tablet active Not Available Not Available Not Available meloxicam 7.5 mg tablet TAKE 1 TABLET BY MOUTH ONCE A DAY 07/28 completed Not Available Not Available Not Available doxycycline monohydrate 50 mg capsule 200 MG (4 X 50 MG) ORALLY ONCE 07/28 completed Not Available Not Available Not Available famotidine 20 mg tablet TAKE 1 TABLET BY MOUTH EVERY 12 HOURS 07/28 completed Not Available Not Available Not Available losartan 25 mg tablet TAKE 1 TABLET BY MOUTH EVERY DAY 07/28 completed Not Available Not Available Not Available nitroglycer in 0.4 mg sublingual tablet active Not Available Not Available Not Available bromphenira mine-pseudo ephedrine-D M 2 mg-30 mg-10 mg/5 mL oral syrup TAKE 5 ML BY MOUTH FOUR TIMES DAILY NEEDED FOR COUGH 07/28 completed Not Available Not Available Not Available fluticasone propionate 50 mcg/actuati on nasal spray,suspe nsion active Not Available Not Available Not Available azithromyci n 500 mg tablet TAKE 1 TABLET BY MOUTH EVERY DAY 07/28 completed Not Available Not Available Not Available metoprolol tartrate 25 mg tablet active Not Available Not Available No t Available Eligard 45 mg (6 month) subcutaneou s syringe Inject 45 mg by subcutane ous route. 2022 active Not Available Not Available Not Avai lable FeroSul 325 mg (65 mg iron) tablet active Not Available Not Available Not Available Vitals Date Recorded Body height Body mass index (BMI) Body weight Provider Name and Address Organization Details Last Updated DateTime 10/17/2022 180.34 cm 28.7 kg/m2 64232.[address] [facility] 10/17/2022 11:51:51 Date Recorded Body height Body mass index (BMI) Body weight Provider Name and Address Organization Details Last Updated DateTime 01/24/2023 180.34 cm 28.7 kg/m2 94962.[address] [facility] 01/24/2023 11:36:44 Date Recorded Body height Body mass index (BMI) Body weight Provider Name and Address Organization Details Last Updated DateTime 01/27/2023 180.34 cm 28.7 kg/m2 18134.03 g Jon Matthews MD [address] [place] [address],[address], [address] [place] [address] 01/27/2023 11:47:37 Date Recorded Body height Body mass index (BMI) Body weight Provider Name and Address Organization Details Last Updated DateTime 07/28/2023 180.34 cm 28.7 kg/m2 30824.03 g Jon Matthews MD [address] [place] [address],[facility] [address], [place], [address] [place] [address] 07/28/2023 15:57:53 Date Recorded Body height Body mass index (BMI) Body weight Provider Name and Address Organization Details Last Updated DateTime 10/29/2023 180.34 cm 28.7 kg/m2 15658.[address] [facility] 10/29/2023 12:02:01 Social History Question Answer Notes LastModified by Organizat ion Details LastModified Time Tobacco Smoking Status Former Smoker Orquidea Huggins [facility] 10/17/2022 11:52:12 What Is Your Level Of Alcohol Consumption? None [email or web address] Information not available 10/29/2023 When Did You Quit Smoking? 16+yearssinc elastcigaret te [email or web address] Information not available 10/17/2022 What Was The Date Of Your Most Recent Tobacco Screening? 10/29/2023 [email or web address] Information not available 10/29/2023 Do You Or Have You Ever Used Any Other Forms Of Tobacco Or Nicotine? No [email or web address] Information not available 10/17/2022 Sex: Male Functional Status None recorded. Mental Status None recorded. Family History Nothing Reported. Medical History Condition Response Other N High Blood Pressure Y Kidney Stones N Depression N Lung Disease N GERD/Acid Reflux N Sexually Transmitted Infection N Cancer Y High Cholesterol Y Diabetes N Bleeding Disorder N Heart Disease Y Immunizations Vaccine Type Date Status Provider Name and Address Organization Details Recorded Time zoster recombinant 05/08/2019 completed [facility] 10/29/2023 10:35:37 zoster recombinant 07/08/2019 completed Tatum Isabel ith null, [facility] 10/29/2023 10:35:37 influenza, high-dose, quadrivalent 09/01/2021 [facility] 10:35:37 Influenza vaccine, quadrivalent, adjuvanted 09/12/2022 [facility] 10:35:37 COVID-19, mRNA, LNP-S, PF, 30 mcg/0.3 mL dose 01/09/2021 [facility] 10:35:37 COVID-19, mRNA, LNP-S, PF, 30 mcg/0.3 mL dose 01/30/2021 [facility]23 10:35:37 COVID-19, mRNA, LNP-S, PF, 30 mcg/0.3 mL dose 09/01/2021 [facility]23 10:35:37 COVID-19, mRNA, LNP-S, bivalent, PF, 30 mcg/0.3 mL dose 09/25/2022 [facility]23 10:35:37 influenza, unspecified formulation 10/31/2010 [facility] 10/29/2023 10:35:37 Tdap 05/17/2014 [facility] 10/29/2023 10:35:37 Novel [id number], all formulations 11/17/2009 [facility]/29/2023 10:35:37 Pneumococcal conjugate PCV 13 09/22/2015 [facility] 10/[facility] 10:35:37 Influenza, high dose seasonal 09/13/2019 completed Tatum Yeung null, [facility] 10/29/2023 10:35:37 Influenza, high dose seasonal 09/15/2017 completed Tatum Yeung null, [facility] 10/29/2023 10:35:37 Influenza, high dose seasonal 09/21/2018 completed Tatum Yeung null, [facility] 10/29/2023 10:35:37 Influenza, seasonal, injectable 09/18/2014 completed Tatum Yeung null, [facility] 10/29/2023 10:35:37 Influenza, seasonal, injectable, preservative free 09/07/2013 completed Tatum Yeung null, [facility] 10/29/2023 10:35:37 Influenza, seasonal, injectable, preservative free 09/09/2012 completed Tatum Yeung null, [facility] 10/29/2023 10:35:37 Influenza, seasonal, injectable, preservative free 09/11/2011 completed Tatum Yeung null, [facility] 10/29/2023 10:35:37 influenza, injectable, quadrivalent, preservative free 09/19/2020 completed Tatum garcia, [facility] 10/29/2023 10:35:37 influenza, injectable, quadrivalent, preservative free 09/22/2015 completed Tatum garcia, [facility] 10/29/2023 10:35:37 influenza, injectable, quadrivalent, preservative free 10/18/2016 completed Tatum garcia, [facility] 10/29/2023 10:35:37 influenza, injectable, quadrivalent, preservative free 11/17/2009 completed Tatum garcia, [facility] 10/29/2023 10:35:37 influenza, high-dose, quadrivalent 09/02/2023 completed Moira garcia, [facility] 10/29/2023 12:02:05 COVID-19, mRNA, LNP-S, PF, berto-sucrose, 30 mcg/0.3 mL 10/16/2023 completed [place] Grajeda - [facility] 10/29/2023 12:02:05 Past Encounters Encounter ID Performer Location Encounter Start Date Encounter Closed Date Diagnosis/Indication Diagnosis SNOMED-CT Code [id number] MD LIZBETH Weeks_[facility] [address] ,[address] [place] [id number] 10/17/2022 11:36:04 10/23/2022 08:13:00 Prostate specific antigen above reference range 720277073 Malignant tumor of prostate 516772944 [id number] MD LIZBETH [facility] [address] [place] [id number] 01/24/2023 11:35:31 01/30/2023 10:06:04 Malignant tumor of prostate 095235451 Prostate s pecific antigen above reference range 804723238 Slowing of urinary stream 78769334 [id number] MD LIZBETH Weeks_[facility] [address] [place] [id number] 01/27/2023 10:17:33 01/31/2023 13:12:52 Malignant tumor of prostate 305068413 [id number] MD Luan Weeks [address] [place] [id number] 07/28/2023 15:15:34 07/30/2023 11:22:27 Malignant tumor of prostate 991280397 Slowing of urinary stream 33560293 Nodule of lung 648858768 [id number] MD Ok Weeks [address] [place] [id number] 10/29/2023 11:41:08 10/30/2023 11:09:41 Malignant tumor of prostate 134591558 Slowing of urinary stream 36931620 Health Concerns Section Related Observation LastModified by Organization Detai ls LastModified Time None Recorded Concern Status LastModified by Organization Details LastModified Time None Recorded Advance Directives Directive None Recorded Payers Encounter Date Sequence Insurance Name Policy Number Policy Carrera Covered Member ID Carrera Member ID Guarantor Name 10/29/2023 1 [employer] (MEDICARE REPLACEMENT/A DVANTAGE - PPO) Chace A Nordine [id number] Chace A Nordine 07/28/2023 1 [employer] (MEDICARE REPLACEMENT/A DVANTAGE - PPO) Chace A Nordine [id number] Chace A Nordine 01/27/2023 1 [employer] (MEDICARE REPLACEMENT/A DVANTAGE - PPO) Chace A Nordine [id number] Chace A Nordine 01/24/2023 1 [employer] (MEDICARE REPLACEMENT/A DVANTAGE - PPO) Chace A Nordine [id number] Chace A Nordine 10/17/2022 1 [employer] (MEDICARE REPLACEMENT/A DVANTAGE - PPO) Chace A Nordine [id number] Chace A Nordine Notes Date Note Type Note Provider Name and Address Organization Details Recorded Time 10/17/2022 text/html HPI Notes: follo w up prostated cancer--lost to follow uo Jon Matthews MD [address] [place] [address],[address], [address], [facility] 10/23/2022 08:47:35 01/24/2023 text/html HPI Notes: This visit was conducted by telephone due to the COVID-19 crisis. Prior to conducting our telephone visit, the patient was apprised of the risks, benefits and alternatives to telephone visits including but not limited to poor audio quality, interrupted visits due to technological limitations, delays in medical evaluation and treatment due to deficiencies or failures of equipment, failure of security protocols resulting in a breach of privacy of personal medical information and a lack of access to complete medical records resulting in not fully informed decisions. Also, because of the COVID-19 pandemic, it was not possible for the patient to sign the privacy regulations, HIPAA release and assignment of benefits forms. The patient was given the opportunity to ask questions about these policies and gave verbal acknowledgement and approval of these policies as well as to hold this meeting by telephone. Lastly, the patient agreed to allowing their medication history to be pulled from a national pharmacy database to facilitate and coordinate their care. Jon Matthews MD [address] [place] [address],[facility] [address], [place], [address], [facility] 01/29/2023 22:40:27 01/27/2023 text/html HPI Notes: HERE FOR NATALIYA Matthews MD [address] [place] [address],[address], [address], [facility] 01/28/2023 06:25:57 07/28/2023 text/html HPI Notes: andrew anand appt Jon Matthews MD [address] [place] [address],[address], [address], [facility] 07/28/2023 18:39:17 10/29/2023 text/html HPI Notes: andrew anand appt Jon Matthews MD [address] [place] [address],[place] [address], [place], [address], [facility] 10/29/2023 19:29:07
== END 2024-03-11 09:32 | disposition home or self-care (01) ==
LOC: NFLDREF 03-12 05:52
PROVIDERS: PCP Family Medicine; Referring Provider Family Medicine; Visit Provider Family Medicine
DX: I10 Essential (primary) hypertension (principal); R97.20 Elevated prostate specific antigen [PSA]; Z12.5 Encounter for screening for malignant neoplasm of prostate; D50.9 Iron deficiency anemia, unspecified; E78.5 Hyperlipidemia, unspecified
CPT/HCPCS: 80053; G0103

== ENCOUNTER 2024-04-06 09:06 | Outpatient (CLI) | payer OTHER, SELFPAY ==
--- OUTSIDE RECORDS SUMMARY | 2024-04-06 09:10 | XMS_ITS | Clinical Summary ---
Author Name Unknown Organization [facility] Address [address] [place] [address] Care Team Providers Care Tribal Judge Name Role Phone Elsewhere, Pcp Primary Care Provider Unavailabl e Source Comments Patient records contain information from all sites at [facility]. For routine questions regarding patient records, call [phone] during business hours, M-F 8:00 AM - 5:00 PM Central Time. Record requests for emergency care only can be directed to [phone] at any time.[facility] Encounters Date Type Department Care Team Description 03/12/2024 10:00 AM CDT Diagnostic Department of Otorhinolaryngology in [place], [place] [address] [place] [address] Shirley Mcgarry Au.D., C.C.C.-A Loss Hearing Sensorineural Bilateral (Primary Dx) from Last 3 Months Social History Tobacco Use Types Packs/Day Years [...] Care Team (Late st Contact Info) Description 04/07/2024 1:00 PM CDT Diagnostic Department of Otorhinolaryngology in [place], [place] [address] [place] [address] Shirley Mcgarry Au.D., C.C.C.-A [address] [place] [address] Health Maintenance Due Date Last Done Comments Pneumococcal vaccine (65+ ye ars) (2 of 2 - PPSV23 or PCV20) 09/22/2016 09/22/2015 Depression Screening (Annual PHQ-2) 12/01/2023 Fall Risk Screen (Annual) 12/01/2023 COVID-19 Vaccine (6 - 2022-2 4 season) 2024 10/16/2023, 09/25/2022, 09/01/2021, Additional history exists DTaP,Tdap,and Td Vaccines (2 - Td or Tdap) 05/17/2024 05/17/2014 Zoster Vaccines Completed 07/08/2019, 05/08/2019 Influenza Vaccine Completed 09/02/2023, , 09/01/2021, Additional history exists Care Teams Tribal Judge Relationship Specialty Start Date End Date Elsewhere, Pcp PCP - General Family Medicine 01/15/19
--- OUTSIDE RECORDS SUMMARY | 2024-04-06 09:10 | XMS_ITS | Referral Summary ---
Author Name Unknown Organization [facility] Address [address] [place] [address] Care Team Providers Care Ship Scaler Name Role Phone Elsewhere, Pcp Primary Care Provider Unavailabl e Source Comments Patient records contain information from all sites at [facility]. For routine questions regarding patient records, call [phone] during business hours, M-F 8:00 AM - 5:00 PM Central Time. Record requests for emergency care only can be directed to [phone] at any time.[facility] Encounters Date Type Department Care Team Description 03/12/2024 10:00 AM CDT Diagnostic Department of Otorhinolaryngology in [place], [place] [address] [place] [address] Shirley Mcgarry Au.D., C.C.C.-A Loss Hearing Sensorineural [...] PM CDT Diagnostic Department of Otorhinolaryngology in [place], [place] [address] [place] [address] Shirley Mcgarry Au.D., C.C.C.-A [address] [place] [address] Care Teams Ship Scaler Relationship Specialty Start Date End Date Elsewhere, Pcp PCP - General Family Medicine 01/15/19
--- OUTSIDE RECORDS SUMMARY | 2024-04-06 09:10 | XMS_ITS | Clinical Summary ---
Author Name Unknown Organization [employer] [facility] Address [place], [place] [address] Care Team Providers Care Tapeman Name Role Phone Brad Mendez MD Primary Care Provider [phone] Allergies No known active allergies Medications Medication [...] EKG changes. Coronary artery disease 04/21/2009 Overview: -AR 1999 -s/p PTCA of OM3 2000 at [facility] -neg treadmill 2001 -Asx positive [...] Documents on File Type Date Recorded Patient Safety And Occupational Health Manager Expl anation Healthcare Directive 05/27/2014 2:23 PM Healthcare Directive 05/23/2014 7:53 AM * Full Code (Latest Code Status on File) Date Activated Date Inactivated Comments 04/21/2009 8:24 AM 04/22/2009 12:52 PM Care Teams Tapeman Relationship Specialty Start Date End Date Brad Mendez MD PCP - General Family Practice 05/17/14
--- OUTSIDE RECORDS SUMMARY | 2024-04-06 09:10 | XMS_ITS | Referral Summary ---
Author Name Unknown Organization [facility] Address [address] [place] [address] Care Team Providers Care Lens Examiner Name Role Phone Md Elisha Primary Care Provider Unavailabl e Allergies No known active allergies Social History Tobacco Use Types Packs/Day Years Used Date Smoking Tobacco: Never Assessed Sex and Gender Information Value Date Recorded Sex Assigned at Not on file Gender Identity Not on file Sexual Orientation Not on file Plan of Treatment Not on file Care Teams Lens Examiner Relationship Specialty Start Date End Date Md Elisha PCP - General 01/07/23
--- OUTSIDE RECORDS SUMMARY | 2024-04-06 09:10 | XMS_ITS | Clinical Summary ---
Author Name Unknown Organization [facility] Address [address] [place] [address] Care Team Providers Care Clinical Documentation Manager Name Role Phone None, Primary Care Provider [...] Zoster Vaccine Completed 07/08/2019, 05/08/2019 Care Teams Clinical Documentation Manager Relationship Specialty Start Date End Date None, PCP - General 01/07/23
--- OUTSIDE RECORDS SUMMARY | 2024-04-06 09:10 | XMS_ITS | Encounter Summary ---
Author Name Unknown Organization [facility] Address [address] [place] [address] Care Team Providers Care Boiler Water Tester Name Role Phone Elsewhere, Pcp Primary Care Provider Unavailabl e Encounter Details Date Type Department Care Team (Latest Contact Info) Description 03/12/2024 10:00 AM CDT Diagnostic Department of Otorhinolaryngology in [place], [place] [address] [place] [address] Shirley Mcgarry Au.D., C.C.C.-A [address] [place] [address] Loss Hearing Sensorineural Bilateral (Primary Dx) Social History Tobacco Use Types Packs/Day Years [...] on file Sexual Orientation Not on file documented as of this encounter Progress Notes * Shirley Mcgarry Au.D., C.C.C.-A - 03/12/2024 10:00 AM CDT SUBJECTIVE REFERRAL: self CHIEF COMPLAINT/REASON FOR VISIT Hearing aid follow-up HISTORY Chace Aguayo is a 89 y.o. 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 His last audiogram was completed 09/23/2023. He has worn hearing aids for several years. He meets cochlear implant criteria. However, with loaner hearing aids fit to prescriptive targets, Mr. Aguayo demonstrated a significant improvement in ease of listening effort. He expressed interest in pursuing a hearing aid fitting here with [facility]. Dr. Boone took earmold impressions and set up a hearing aid fitting. On 10/15/2023 I coupled the earmolds with his existing hearing aids, rather than fitting new devices. 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 OBJECTIVE Otoscopic evaluation was performed and indicated clear ear canals. Bilateral impressions were taken. ASSESSMENT/PLAN Intent 1 miniRITE R with smartcharger and connectclip will be ordered. Fitting was scheduled. #1 Loss Hearing Sensorineural Bilateral documented in this encounter Plan of Treatment Upcoming Encounters Date Type Department Care Team (Late st Contact Info) Description 04/07/2024 1:00 PM CDT Diagnostic Department of Otorhinolaryngology in [place], [place] [address] [place] [address] Shirley Mcgarry Au.D., C.C.C.-A [address] [place] [address] documented as of this encounter Visit Diagnoses Diagnosis Loss Hearing Sensorineural Bilateral- Primary documented in this encounter Care Teams Boiler Water Tester Relationship Specialty Start Date End Date Elsewhere, Pcp PCP - General Family Medicine 01/15/19 documented as of this encounter
--- OUTSIDE RECORDS SUMMARY | 2024-04-06 09:10 | XMS_ITS ---
Author Name Unknown Organization [facility] Address [address] [place] [address] Care Team Providers Care Corrosion Prevention Metal Sprayer Name Role Phone Unavailable Unavailable Unavailable Surgery Details Not on file Complications Check Surgery Details section. Procedure Estimated Blood Loss Check Surgery Details section. Procedure Findings Check Surgery Details section. Procedure Specimens Taken Check Surgery Details section.
== END 2024-04-06 09:07 | disposition home or self-care (01) ==
PROVIDERS: PCP Family Medicine; Visit Provider Family Medicine
DX: I10 Essential (primary) hypertension (principal); I25.10 Atherosclerotic heart disease of native coronary artery without angina pectoris; R53.83 Other fatigue; Z13.29 Encounter for screening for other suspected endocrine disorder
CPT/HCPCS: 80053; 83880; 84443

== ENCOUNTER 2024-04-07 08:34 | Outpatient (CLI) | payer OTHER, SELFPAY ==
--- OUTSIDE RECORDS SUMMARY | 2024-04-07 08:41 | XMS_ITS | Clinical Summary ---
Author Name Unknown Organization [facility] Address [address] [place] [address] Care Team Providers Care Equipment Or Machinery Cleaner Name Role Phone None, Primary Care Provider [...] Zoster Vaccine Completed 07/08/2019, 05/08/2019 Care Teams Equipment Or Machinery Cleaner Relationship Specialty Start Date End Date None, PCP - General 01/07/23
--- OUTSIDE RECORDS SUMMARY | 2024-04-07 08:41 | XMS_ITS | Referral Summary ---
Author Name Unknown Organization [facility] Address [address] [place] [address] Care Team Providers Care Leasing Assistant Name Role Phone Md Elisha Primary Care Provider Unavailabl e Allergies No known active allergies Social History Tobacco Use Types Packs/Day Years Used Date Smoking Tobacco: Never Assessed Sex and Gender Information Value Date Recorded Sex Assigned at Not on file Gender Identity Not on file Sexual Orientation Not on file Plan of Treatment Not on file Care Teams Leasing Assistant Relationship Specialty Start Date End Date Md Elisha PCP - General 01/07/23
--- OUTSIDE RECORDS SUMMARY | 2024-04-07 08:41 | XMS_ITS | Clinical Summary ---
Author Name Unknown Organization [facility] Address [address] [place] [address] Care Team Providers Care Garage Manager Name Role Phone Elsewhere, Pcp Primary Care Provider Unavailabl e Source Comments Patient records contain information from all sites at [facility]. For routine questions regarding patient records, call [phone] during business hours, M-F 8:00 AM - 5:00 PM Central Time. Record requests for emergency care only can be directed to [phone] at any time.[facility] Encounters Date Type Department Care Team Description 03/12/2024 10:00 AM CDT Diagnostic Department of Otorhinolaryngology in [place], [place] [address] [place] [address] Shirley Mcgarry Au.D., C.C.C.-A Loss Hearing Sensorineural [...] PM CDT Diagnostic Department of Otorhinolaryngology in [place], [place] [address] [place] [address] Shirley Mcgarry Au.D., C.C.C.-A [address] [place] [address] Health Maintenance Due Date Last Done Comments [...] , 09/01/2021, Additional history exists Care Teams Garage Manager Relationship Specialty Start Date End Date Elsewhere, Pcp PCP - General Family Medicine 01/15/19
--- OUTSIDE RECORDS SUMMARY | 2024-04-07 08:41 | XMS_ITS | Data Portability ---
Author Name Unknown Address [address] [place] [address] Phone [phone] Organization [facility] Address [address] [place] [address] Assessment Encounter Date Assessment Date Assessment LastModified [...] plasma 2022 023 dtortorelis [facility], [address], [address], [place], [address], Ph [phone] 10/29/2023 12:15:00 urinaly sis, dipstic k 2022 023 dtortorelis [facility], [address], [address], [place], [address], Ph 10/29/2023 12:14:58 PSA, serum or plasma 2022 023 dtortorelis [facility], [address], [place], [address], 07/28/2023 16:02:56 Referral None recorde d. Procedures bladder scan (PROC) 2022 023 dtjavon [facility], [address], [address], [place], [address], Ph 10/29/2023 12:14:57 Surgeries None recorde d. Imaging CT, chest, w/o contras t 2022 023 [facility], [address] [place], [address], 08/20/2023 11:49:30 Medication Orders Flomax 0.4 mg capsule 2022 023 [facility] (Now [facility]), [address], [place], [address], 10/29/2023 12:15:19 Eligard 45 mg (6 month) subcuta neous syringe [facility]22 [facility] [address], [place], [address], 01/27/2023 12:10:25 Patient TargetsNo targets recorded. Patient Instructions Encounter Date Encounter Id Patient Instructions Last Modified By Organization Details Last Modified Time 10/29/2023 [id number] Prostate cancer diagnosed March 2014 but lost [...] OFFICE dtortorelis Not available 10/29/2023 12:14:15 07/28/2023 [id number] Prostate cancer diagnosed March 2014 but lost [...] ELIGARD dtortorelis Not available 07/28/2023 16:19:52 01/27/2023 [id number] Prostate cancer diagnosed March 2014 but lost [...] MONTHS dtortorelis Not available 01/28/2023 06:25:27 01/24/2023 [id number] PHONE VISIT Prostate cancer diagnosed March 2014 [...] PULMONARY NODULE PLAN CT CHEST 6 MONTHS [facility]--DISCUSS ED HAS HANDOUT ---FOLLOW UP Friday01/27/2023 DAYANNA OFFICE FOLLOW UP BLADDER SCAN PVR CYSTO AND PSA 15 MIN PHONE DISCUSSION dtortorelis Not available 01/29/2023 22:40:17 10/17/2022 [id number] Prostate cancer diagnosed March 2014 but lost [...] Not Available [facility] [address], [place], [address], 07/28/2023 16:02:34 10/29/20 23 10/29/2023 bladd er scan (PROC ) Volume (in mL) 95 Not Available Melecio schaefer [address], [place], [address], Ph 10/29/2023 10:34:40 10/29/20 23 10/29/2023 urina lysis , dipst ick BLO small Not Available [facility] [address], [place], [address], Ph 10/29/2023 10:34:37 10/29/20 23 10/29/2023 urina lysis , dipst ick pH 6.0 Not Available [facility] [address], [place], [address], Ph 10/29/2023 10:34:37 10/29/20 23 10/29/2023 urina lysis , dipst ick BOB small Not Available [facility] [address], [place], [address], Ph [phone] 10/29/2023 10:34:37 10/29/20 23 10/29/2023 PSA, serum or plasm a PSA 0.48 0-4.0 Not Available [facility] [address], [place], [address], Ph 10/29/2023 10:34:34 01/20/20 23 01/20/2023 PET-C T, whole body scan No observ ation record ed. [email or web address] [facility] [address], [place], [address], 01/22/2023 14:58:04 08/20/20 23 08/19/2023 CT, chest , w/o contr ast No observ ation record ed. [facility] [address] [facility], [place], [address], 09/04/2023 15:01:12 Result Notes None recorded. 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 13 607.84 : IMPOTENCY- ORGANIC Not Available [facility] 05/18/2020 01:57:29 Slowing of urinary stream Active 03/22/20 13 788.62 : SLOW STREAM Not Available [facility] 05/18/2020 01:57:29 Prostate specific antigen above reference range Active 03/22/20 13 790.93 : ELEVATED PSA Not Available [facility] 05/18/2020 01:57:29 Malignant tumor of prostate Active 10/17/20 Jon Matthews MD [address] [facility],[address], [place], [address], [facility] 10/17/2022 12:23:04 Nodule of lung Active 07/28/20 Jon Matthews MD [address] [place] [address],[address], [place], [address], [facility] 07/28/2023 16:20:20 Problem Notes None recorded. Procedures Surgical History Date Name Laterality Status Provider Name and Address Organization Details Recorded Time 3 Cystoscopy- male completed Tatum Yeung [facility] 10/29/2023 10:35:01 3 POWER TRANSFORMER REPAIR SUPERVISOR/blood draw completed Jon Matthews MD [address] [place] [address],[address], [address], [facility] 07/28/2023 16:02:26 3 Eligard completed Devika Avilez [facility] 01/27/2023 12:09:15 Imaging Results Imaging Date Name Status LastModified by Organiz ation Details LastModified Time 01/20/2023 PET-CT, whole body scan completed [email or web address] [facility] [address] [facility] Abraham [address] [place] [address], [address], 01/22/2023 14:58:04 08/19/2023 CT, chest, w/o contrast completed [facility] [address] [place], [address], 09/04/2023 15:01:12 Procedure Notes None recorded. Medical [...] Updated DateTime 10/17/2022 180.34 cm 28.7 kg/m2 53239.03 g Orquidea Huggins [facility] 10/17/2022 11:51:51 Date Recorded Body height Body mass index (BMI) Body weight Provider Name and Address Organization Details Last Updated DateTime 01/24/2023 180.34 cm 28.7 kg/m2 73279.03 g Orquidea Huggins [facility] 01/24/2023 11:36:44 Date Recorded Body height Body mass index (BMI) Body weight Provider Name and Address Organization Details Last Updated DateTime 01/27/2023 180.34 cm 28.7 kg/m2 32302.03 g Jon Matthews MD [address] [place] [address],[address], [address] [place] [address] 01/27/2023 11:47:37 Date Recorded Body height Body mass index (BMI) Body weight Provider Name and Address Organization Details Last Updated DateTime 07/28/2023 180.34 cm 28.7 kg/m2 67964.03 g Jon Matthews MD [address] [place] [address],[facility] [address], [place], [address] [place] [address] 07/28/2023 15:57:53 Date Recorded Body height Body mass index (BMI) Body weight Provider Name and Address Organization Details Last Updated DateTime 10/29/2023 180.34 cm 28.7 kg/m2 87479.03 g Moira Asif [facility] 10/29/2023 12:02:01 Social History Question Answer Notes LastModified by Organizat ion Details LastModified Time Tobacco Smoking Status Former Smoker Orquidea Huggins [facility] 10/17/2022 11:52:12 What Is Your Level Of Alcohol Consumption? None [email or web address] Information not available 10/29/2023 When Did You Quit Smoking? 16+yearssinc elastcigaret te [email or web address] Information not available 10/17/2022 What Was The Date Of Your Most Recent Tobacco Screening? 10/29/2023 [email or web address] Information not available 10/29/2023 Do You Or Have You Ever Used Any Other Forms Of Tobacco Or Nicotine? No [email or web address] Information not available 10/17/2022 Sex: Male Functional Status None recorded. Mental Status None recorded. Family History Nothing Reported. Medical History Condition Response Other N High Blood Pressure Y Kidney Stones N Lung Disease N Depression N GERD/Acid Reflux N Sexually Transmitted Infection N Diabetes N Bleeding Disorder N Cancer Y High Cholesterol Y Heart Disease Y Immunizations Vaccine Type Date Status Provider Name and Address Organization Details Recorded Time zoster recombinant 05/08/2019 completed [facility] 10/29/2023 10:35:37 zoster recombinant 07/08/2019 completed Tatum Isabel ith null, [facility] 10/29/2023 10:35:37 influenza, high-dose, quadrivalent 09/01/2021 [facility]/29/2023 10:35:37 Influenza vaccine, quadrivalent, adjuvanted 09/12/2022 [facility] 10:35:37 COVID-19, mRNA, LNP-S, PF, 30 mcg/0.3 mL dose 01/09/2021 [facility] 10:35:37 COVID-19, mRNA, LNP-S, PF, 30 mcg/0.3 mL dose 01/30/2021 [facility] 10:35:37 COVID-19, mRNA, LNP-S, PF, 30 mcg/0.3 mL dose 09/01/2021 [facility] 10:35:37 COVID-19, mRNA, LNP-S, bivalent, PF, 30 mcg/0.3 mL dose 09/25/2022 [facility]23 10:35:37 influenza, unspecified formulation 10/31/2010 [facility]29/2023 10:35:37 Tdap 05/17/2014 [facility]2023 10:35:37 Novel [id number], all formulations 11/17/2009 [facility]/2023 10:35:37 Pneumococcal conjugate PCV 13 09/22/2015 completed [facility], [facility] 10/29/2023 10:35:37 Influenza, high dose seasonal 09/13/2019 completed Tatum Yeung null, [facility] 10/29/2023 10:35:37 Influenza, high dose seasonal 09/15/2017 completed Tatum Yeung null, [facility] 10/29/2023 10:35:37 Influenza, high dose seasonal 09/21/2018 completed Tatum Yeung null, [facility] 10/29/2023 10:35:37 Influenza, seasonal, injectable 09/18/2014 completed Tatum Yeung null, [facility] 10/29/2023 10:35:37 Influenza, seasonal, injectable, preservative free 09/07/2013 completed Tatum Yeung null, [facility] 10/29/2023 10:35:37 Influenza, seasonal, injectable, preservative free 09/09/2012 completed Tatum Yeung null, [facility] 10/29/2023 10:35:37 Influenza, seasonal, injectable, preservative free 09/11/2011 completed Tatum Yeung null, [facility] 10/29/2023 10:35:37 influenza, injectable, quadrivalent, preservative free 09/19/2020 completed Tatum garcia, [facility] 10/29/2023 10:35:37 influenza, injectable, quadrivalent, preservative free 09/22/2015 completed Tatum garcia, [facility] 10/29/2023 10:35:37 influenza, injectable, quadrivalent, preservative free 10/18/2016 completed Tatum garcia, [facility] 10/29/2023 10:35:37 influenza, injectable, quadrivalent, preservative free 11/17/2009 completed Tatum garcia, [facility] 10/29/2023 10:35:37 influenza, high-dose, quadrivalent 09/02/2023 completed Moira garcia, [facility] 10/29/2023 12:02:05 COVID-19, mRNA, LNP-S, PF, berto-sucrose, 30 mcg/0.3 mL 10/16/2023 completed SHAMA Grajeda - [facility] 10/29/2023 12:02:05 Past Encounters Encounter ID Performer Location Encounter Start Date Encounter Closed Date Diagnosis/Indication Diagnosis SNOMED-CT Code [id number] MD LIZBETH Weeks[facility] [address] [facility] ,[address] [place] [address] 10/17/2022 11:36:04 10/23/2022 08:13:00 Prostate specific antigen above reference range 576694933 Malignant tumor of prostate 214124752 [id number] MD LIZBETH [facility]eks[facility] [address] [place] [id number] 01/24/2023 11:35:31 01/30/2023 10:06:04 Malignant tumor of prostate 196691926 Prostate s pecific antigen above reference range 655016454 Slowing of urinary stream 56122257 [id number] MD LIZBETH Weeks[facility] [address] [place] [id number] 01/27/2023 10:17:33 01/31/2023 13:12:52 Malignant tumor of prostate 036834972 [id number] MD Luan Weeks [address] [place] [id number] 07/28/2023 15:15:34 07/30/2023 11:22:27 Malignant tumor of prostate 278287408 Slowing of urinary stream 99284230 Nodule of lung 724435048 [id number] MD Ok Weeks [address] [place] [address] 10/29/2023 11:41:08 10/30/2023 11:09:41 Malignant tumor of prostate 101191910 Slowing of urinary stream 39180872 Health Concerns Section Related Observation LastModified by Organization Detai ls LastModified Time None Recorded Concern Status LastModified by Organization Details LastModified Time None Recorded Advance Directives Directive None Recorded Payers Encounter Date Sequence Insurance Name Policy Number Policy Carrera Covered Member ID Carrera Member ID Guarantor Name 10/29/2023 1 [employer] (MEDICARE REPLACEMENT/A DVANTAGE - PPO) Chace A Nordine [id number] Chace A Nordine 07/28/2023 1 [employer] (MEDICARE REPLACEMENT/A DVANTAGE - PPO) Chace A Nordine [id number] Chace A Nordine 01/27/2023 1 [employer] (MEDICARE REPLACEMENT/A DVANTAGE - PPO) Chace A Nordine [id number] Chace A Nordine 01/24/2023 1 [employer] (MEDICARE REPLACEMENT/A DVANTAGE - PPO) Chace A Nordine [id number] Chace A Nordine 10/17/2022 1 [employer] (MEDICARE REPLACEMENT/A DVANTAGE - PPO) Chace A Nordine [id number] Chace A Nordine Notes Date Note Type Note Provider Name and Address Organization Details Recorded Time 10/17/2022 text/html HPI Notes: follo w up prostated cancer--lost to follow uo Jon Matthews MD [address] [place] [address],[address], [address], [facility] 10/23/2022 08:47:35 01/24/2023 text/html HPI Notes: [...] and coordinate their care. Jon Matthews MD [address] [place] [address],[facility] [address], [address], [facility] 01/29/2023 22:40:27 01/27/2023 text/html HPI Notes: HERE FOR NATALIYA Matthews MD [address] [place] [address],[address], [address], [facility] 01/28/2023 06:25:57 07/28/2023 text/html HPI Notes: andrew anand appt Jon Matthews MD [address] [place] [address],[address], [address], [facility] 07/28/2023 18:39:17 10/29/2023 text/html HPI Notes: andrew anand appt Jon Matthews MD [address] [place] [address],[place] [address], [place], [address], [facility] 10/29/2023 19:29:07
--- OUTSIDE RECORDS SUMMARY | 2024-04-07 08:42 | XMS_ITS | Clinical Summary ---
Author Name Unknown Organization [facility] Address [place], [place] [address] Care Team Providers Care Pharmacy Services Director Name Role Phone Brad Mednez MD Primary Care Provider [phone] Allergies No known active allergies Medications Medication [...] EKG changes. Coronary artery disease 04/21/2009 Overview: -CT 1999 -s/p PTCA of OM3 2000 at [facility] -neg treadmill 2001 -Asx positive stress nuclear [...] 09/19/2015 10:06 AM CDT Plan of Treatment Upcoming Encounters Date Type Department Care Team (Late st Contact Info) Description 04/07/2024 9:00 AM CDT Ancillary Procedure [address] [address] Health Maintenance Due Date Last Done Comments Tdap 1948 Depression screening for age 12+ 1949 BMI (ht and wt on same day) for age 18+ 1955 Tetanus booster 1957 Zoster (shingles) series for age 50+ (1 of 2) 01/21/19 87 Medicare Wellness for age 65+ 2002 Pneumococcal series for age 65+ (1 of 1 - PCV) 002 COVID-19 vaccine series ( - 2022- season) 3 Influenza for age 65+ 08/01/2024 Advance Directives Documents on File Type Date Recorded Patient Toe Former Expl anation Healthcare Directive 05/27/2014 2:23 PM Healthcare Directive 05/23/2014 7:53 AM * Full Code (Latest Code Status on File) Date Activated Date Inactivated Comments 04/21/2009 8:24 AM 04/22/2009 12:52 PM Care Teams Pharmacy Services Director Relationship Specialty Start Date End Date Brad Mendze MD PCP - General Family Practice 05/17/14
--- OUTSIDE RECORDS SUMMARY | 2024-04-07 08:42 | XMS_ITS | Encounter Summary ---
Author Name Unknown Organization [facility] Address [address] [place] [address] Care Team Providers Care Design Studio Consultant Name Role Phone Elsewhere, Pcp Primary Care Provider Unavailabl e Encounter Details Date Type Department Care Team (Latest Contact Info) Description 03/12/2024 10:00 AM CDT Diagnostic Department of Otorhinolaryngology in [place], [place] [address] [place] [address] Shirley Mcgarry Au.D., C.C.C.-A [address] [place] [address] Loss Hearing Sensorineural Bilateral (Primary Dx) Social [...] pursuing a hearing aid fitting here with [facility]. Dr. Boone took earmold impressions and set up a hearing aid fitting. On 10/15/2023 I coupled the earmolds with his existing hearing aids, rather than fitting new devices. 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 Aguayo would like to try 5to1 hearing aids. OBJECTIVE Otoscopic evaluation was performed [...] PM CDT Diagnostic Department of Otorhinolaryngology in [place], [place] [address] [place] [address] Shirley Mcgarry Au.D., C.C.C.-A [address] [place] [address] documented as of this encounter Visit Diagnoses Diagnosis Loss Hearing Sensorineural Bilateral- Primary documented in this encounter Care Teams Design Studio Consultant Relationship Specialty Start Date End Date Elsewhere, Pcp PCP - General Family Medicine 01/15/19 documented as of this encounter
--- OUTSIDE RECORDS SUMMARY | 2024-04-07 08:42 | XMS_ITS | Referral Summary ---
Author Name Unknown Organization [facility] Address [address] [place] [address] Care Team Providers Care Server Software Engineer Name Role Phone Elsewhere, Pcp Primary Care Provider Unavailabl e Source Comments Patient records contain information from all sites at [facility]. For routine questions regarding patient records, call [phone] during business hours, M-F 8:00 AM - 5:00 PM Central Time. Record requests for emergency care only can be directed to [phone] at any time.[facility] Encounters Date Type Department Care Team Description 03/12/2024 10:00 AM CDT Diagnostic Department of Otorhinolaryngology in [place], [place] [address] [place] [address] Shirley Mcgarry Au.D., C.C.C.-A Loss Hearing Sensorineural [...] PM CDT Diagnostic Department of Otorhinolaryngology in [place], [place] [address] [place] [address] Shirley Mcgarry Au.D., C.C.C.-A [address] [place] [address] Care Teams Server Software Engineer Relationship Specialty Start Date End Date Elsewhere, Pcp PCP - General Family Medicine 01/15/19
--- OUTSIDE RECORDS SUMMARY | 2024-04-07 08:42 | XMS_ITS ---
Author Name Unknown Organization [facility] Address [address] [place] [address] Care Team Providers Care Law Enforcement Director Name Role Phone Unavailable Unavailable Unavailable Surgery Details Not on file Complications Check Surgery Details section. Procedure Estimated Blood Loss Check Surgery Details section. Procedure Findings Check Surgery Details section. Procedure Specimens Taken Check Surgery Details section.
== END 2024-04-07 08:35 | disposition home or self-care (01) ==
PROVIDERS: PCP Family Medicine; Visit Provider Family Medicine
DX: I48.91 Unspecified atrial fibrillation (principal); I34.0 Nonrheumatic mitral (valve) insufficiency; I25.10 Atherosclerotic heart disease of native coronary artery without angina pectoris; K76.89 Other specified diseases of liver
CPT/HCPCS: 93306

== ENCOUNTER 2024-10-22 09:21 | Day surgery (SDC) | payer OTHER, SELFPAY ==
--- OUTSIDE RECORDS SUMMARY | 2024-10-22 09:27 | XMS_ITS | Referral Summary ---
Author Organization [facility] Address [address] [place] [id number] Care Team Providers Care Legal Billing Specialist Name Role Phone Elsewhere, Pcp Primary Care Provider Unavailabl e Source Comments Patient records contain information from all sites at [facility]. For routine questions regarding patient records, call [phone] during business hours, M-F 8:00 AM - 5:00 PM Central Time. 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
--- OUTSIDE RECORDS SUMMARY | 2024-10-22 09:27 | XMS_ITS | Data Portability ---
Author Organization [facility], [facility] Address [address] [place] [address] Assessment Encounter Date Assessment Date Assessment LastModified by Organization Details LastModified Time 10/29/2023 10/29/2023 Patient presents for the following blood tests: PSA Patient drawn without difficulty and sample kept for in-house testing. Drawn by: LOS Montes De Oca574 Not available 10/29/2023 12:02:48 Plan of Treatment Reminders Order Date Submit Date Provider Last Modified By Organization Details Last Modified Time Details Appointments LAB BLOOD DRAW 2023 09:50A M [facility] Not available Not available Not available ESTABLI SHED 10 2023 10:10A M Jon Leslye espinosa MD Not available Not available Not available Lab PSA, serum or plasma 2022 023 dtortorelis [facility], [address], [place], [address], 07/28/2023 16:02:56 PSA, serum or plasma 2022 023 dtortorelis [facility], [address], [address], [place], [address], Ph [phone] 10/29/2023 12:15:00 urinaly sis, dipstic k 2022 023 dtortorelis [facility], [address], [address], [place], [address], Ph 10/29/2023 12:14:58 urinaly sis, dipstic k 2023 024 [facility], [address], [place], [address], 05/24/2024 11:32:29 Referral None recorde d. Procedures bladder scan (PROC) 2022 023 dtortorelis [facility], [address], [address], [place], [address], Ph 10/29/2023 12:14:57 Surgeries None recorde d. Imaging CT, chest, w/o contras t 2022 023 [facility], [address] [place], [address], 08/20/2023 11:49:30 Medication Orders Eligard 45 mg (6 month) subcuta neous syringe 2022 023 [email or web address] [facility] (Now [facility]), [address], [place], [address], 01/27/2023 12:10:25 Flomax 0.4 mg capsule 2022 023 [facility] (Now [facility]), [address], [place], [address], 10/29/2023 12:15:19 Eligard 30 mg (4 month) subcuta neous syringe [email or web address] [facility] (Now [facility]), [address], [place], [address], 05/24/2024 12:21:21 Patient TargetsNo targets recorded. Patient Instructions Encounter Date Encounter Id Patient Instructions Last Modified By Organization Details Last Modified Time 01/24/2023 [id number] PHONE VISIT Prostate cancer diagnosed March 2014 [...] PULMONARY NODULE PLAN CT CHEST 6 MONTHS ELIGARD--DISCUSSED HAS HANDOUT ---FOLLOW UP Friday01/27/2023 [facility] OFFICE FOLLOW UP BLADDER SCAN PVR CYSTO AND PSA 15 MIN PHONE DISCUSSION dtortorelis Not available 01/29/2023 22:40:17 01/27/2023 [id number] Prostate cancer diagnosed March 2014 but lost [...] 6 MONTHS dtortorelis Not available 01/28/2023 06:25:27 07/28/2023 [id number] Prostate cancer diagnosed March 2014 but lost to follow-up Cryosurgery was performed 2013 PSA 0.23 07/28/2023 ---ELIGARD--6MONTH INJECTION GIVEN -- 01/27/2023 [facility] OFFICE PSA [...] MONTHS ---OCT 2023 FOLLOW UP BLADDER SCAN ///CYSTO--POSSIBLE ELIGARD dtortorelis Not available 07/28/2023 16:19:52 10/29/2023 [id number] Prostate cancer diagnosed March 2014 but lost to follow-up Cryosurgery was performed 2013 PSA 0.48 10/29/2023 PSA 0.23 07/28/2023 ---ELIGARD--6MONTH INJECTION GIVEN -- 01/27/2023 [facility] OFFICE PSA [...] GROSS METS SMALL 6MM PULMONARY NODULE CT CHEST08/19/2023---6 MM NODULE--NO CHANGE PLAN PT ELECTS INTERMITTENT HORMONE DEPRIVATION THERAPY---NO ELIGARD TODAY CONTINUE FLOMAX 0.4 MG BID FOLLOW UP BLADDER SCAN ///CYSTO--POSSIBLE ELIGARD---PSA 6 MONTHS---[facility] OFFICE dtortorelis Not available 10/29/2023 12:14:15 05/24/2024 [id number] 1. Prostate canc er diagnosed March 2014 but lost to follow-up 2. MICROHEMATURIA ON UA TODAY 05/24/2024 CYSTOSCOPY --MEDAIN LOBE AND SOME LATERAL LOBES OBSTRUCTION Cryosurgery was performed 2013 PSA 6.6 05/24/2024---ELIGAR D 4 MONTH GIVEN TODAY PSA 0.48 10/29/2023 PSA 0.23 07/28/2023 ---ELIGARD--6MONTH INJECTION GIVEN -- 01/27/2023 [facility] OFFICE PSA 6.61 September 18, 2022 PSA 5.71 March 04, 2022 PSA 4.4 31 Mar 2021 PSA 4.2 08 January 2021 PSA 4.11 Apr 2020 PSA 3.March PSA 3.05 March 2018 PSA 2.23 April 19,017 PSA 0.October PSA 5.0 07 March 2014 PSA 6.22 October 2013 slow stream--ON FLOMAX PET CT PYLARIFY 01/20/2023 UPTAKE IN PROSTATE NO GROSS METS SMALL 6MM PULMONARY NODULE CT CHEST08/19/2023---6 MM NODULE--NO CHANGE AFIB------HAS HEART MONITOR--BEING EVALUATED PLAN PT ELECTS INTERMITTENT HORMONE DEPRIVATION THERAPY---WILL GIVE NICKGARD TODAY---4 MONTH CONTINUE FLOMAX 0.4 MG BID FOLLOW UP PSA 4 MONTHS --PRIOR TO TRIP TO [place] DISCUSSED SURGICAL INTERVENTION IF DEVELOPS RERTENTION ---TUR PROSTATE ---HOWEVER PT NOT BOTHERED WITH VOIDING dtortorelis Not available 05/24/2024 12:33:53 Reason for Referral None Reported. Results Created Date Observation Date Name Description Value Unit Range Abnormal Flag Note LastModifiedBy Organization Detail LastModifiedTime 07/28/2007/28/2023 PSA, serum or plasm a PSA 0.23 ng/mL 0-4.0 Not Available [facility] [address], [place], [address], 07/28/2023 16:02:34 10/29/20 23 10/29/2023 bladd er scan (PROC ) Volume (in mL) 95 Not Available [facility] [address], [place], [address], Ph [phone] 10/29/2023 10:34:40 10/29/20 23 10/29/2023 urina lysis , dipst ick BLO small Not Available [facility] [address], [place], [address], Ph 10/29/2023 10:34:37 10/29/20 23 10/29/2023 urina lysis , dipst ick pH 6.0 Not Available [facility] [address], [place], [address], Ph 10/29/2023 10:34:37 10/29/20 23 10/29/2023 urina lysis , dipst ick BOB small Not Available [facility] [address], [place], [address], Ph 10/29/2023 10:34:37 10/29/20 23 10/29/2023 PSA, serum or plasm a PSA 0.48 0-4.0 Not Available [facility] [address], [place], [address], Ph 10/29/2023 10:34:34 05/24/20 24 05/24/2024 urina lysis , dipst ick BLOOD Small (10 RBC/uL ) Not Available [facility] [address], [place], [address], 05/24/2024 11:29:27 05/24/20 24 05/24/2024 urina lysis , dipst ick BILIRUBIN Negati ve Not Available [facility] [address], [place], [address], 05/24/2024 11:29:27 05/24/20 24 05/24/2024 urina lysis , dipst ick UROBILINOGEN 0.2 mg/dL (Norm) Not Available [facility] [address], [place], [address], 05/24/2024 11:29:27 05/24/20 24 05/24/2024 urina lysis , dipst ick KETONES Negati ve Not Available [facility] [address], [place], [address], 05/24/2024 11:29:27 05/24/20 24 05/24/2024 urina lysis , dipst ick PROTEIN Negati ve Not Available [facility] [address], [place], [address], 05/24/2024 11:29:27 05/24/20 24 05/24/2024 urina lysis , dipst ick NITRITES Negati ve Not Available [facility] [address], [place], [address], 05/24/2024 11:29:27 05/24/20 24 05/24/2024 urina lysis , dipst ick GLUCOSE Negati ve Not Available [facility] [address], [place], [address], 05/24/2024 11:29:27 05/24/20 24 05/24/2024 urina lysis , dipst ick p.H. 6.0 Not Available [facility] [address], [place], [address], 05/24/2024 11:29:27 05/24/20 24 05/24/2024 urina lysis , dipst ick S.G. (Specific [place]) 1.020 Not Available [facility] [address], [place], [address], 05/24/2024 11:29:27 05/24/20 24 05/24/2024 urina lysis , dipst ick LEUKOCYTES Small (25 WBC/uL ) Not Available [facility] [address], [place], [address], 05/24/2024 11:29:27 01/20/20 23 01/20/2023 PET-C T, whole body scan No observ ation record ed. [email or web address] [facility] [address], [place], [address], 01/22/2023 14:58:04 08/20/20 23 08/19/2023 CT, chest , w/o contr ast No observ ation record ed. RAJESH [facility] [address] [place], [address], 09/04/2023 15:01:12 Result Notes None recorded. 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 [address], [address] , [facility] 2 12:23:04 Nodule of lung 298567262 Active 2022 Jon Matthews MD [address] [facility],[address], [place], [address] , [facility] 3 16:20:20 Problem Notes None recorded. Procedures Surgical History Date Name Laterality Status Provider Name and Address Organization Details Recorded Time 4 Cystoscopy- male completed Jon Matthews MD [address] 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,[address], [place], [address], [place] [facility] 07/28/2023 16:02:26 3 Nataliya completed Devika Avilez [facility] 01/27/2023 12:09:15 Imaging Results Imaging Date Name Status LastModified by Organiz ation Details LastModified Time 01/20/2023 PET-CT, whole body scan completed [email or web address] [facility] [place] [address] [facility] [address], [place], [address], 01/22/2023 14:58:04 08/19/2023 CT, chest, w/o contrast completed [facility] [address] [place], [address], 09/04/2023 15:01:12 Procedure Notes None recorded. Medical Equipment None Reported. Allergies No known drug allergies Medications Name Sig Start Date Stop Date Status Note LastModified by Organization Details LastModified Time losartan 50 mg tablet TAKE 1 TABLET BY MOUTH EVERY DAY active Not Available Not Available No t Available amoxicillin 500 mg capsule TAKE ONE CAPSULE BY MOUTH THREE TIMES DAILY FOR 7 DAYS 07/28 completed Not Available Not Available Not Available benzonatate 200 mg capsule TAKE ONE CAPSULE [...] completed Not Available Not Available Not Available tamsulosin 0.4 mg capsule Take 1 capsule twice a day by oral route. active Not Available Not Available No t Available losartan 25 mg tablet TAKE 1 TABLET BY MOUTH EVERY DAY 07/28 completed Not Available Not Available Not Available nitroglycer in 0.4 mg sublingual tablet active Not Available Not Available Not Available furosemide 20 mg tablet TAKE 1 TAB ORALLY EVERY MORNING active Not Available Not Available No t Available metoprolol succinate ER 25 mg tablet,exte nded release 24 hr TAKE 0.5 TABLETS BY MOUTH ONCE DAILY. active Not Available Not Available No t Available bromphenira mine-pseudo ephedrine-D M 2 mg-30 mg-10 mg/5 mL oral syrup TAKE 5 ML BY MOUTH FOUR TIMES DAILY NEEDED FOR COUGH 07/28 completed Not Available Not Available Not Available losartan 100 mg tablet TAKE 1 TABLET BY MOUTH EVERY DAY 05/24 completed Not Available Not Available Not Available fluticasone propionate 50 mcg/actuati on nasal spray,suspe nsion active Not Available Not Available Not Available azithromyci n 500 mg tablet TAKE 1 TABLET BY MOUTH EVERY DAY 07/28 completed Not Available Not Available Not Available Eligard 30 mg (4 month) subcutaneou s syringe Inject 1 syringe by subcutane ous route. 2023 active Not Available Not Available Not Avai lable metoprolol tartrate 25 mg tablet 05/24 completed Not Available Not Available Not Available Eligard 45 mg (6 month) subcutaneou s syringe Inject 45 mg by subcutane ous route. 2022 active Not Available Not Available Not Avai lable FeroSul 325 mg (65 mg iron) tablet active Not Available Not Available Not Available Eliquis 5 mg tablet TAKE 1 TABLET BY MOUTH TWO TIMES DAILY. active Not Available Not Available No t Available Vitals Date Recorded Body height Body mass index (BMI) Body weight Provider Name and Address Organization Details Last Updated DateTime 01/24/2023 180.34 cm 28.7 kg/m2 16035.03 g Orquidea Huggins [facility] 01/24/2023 11:36:44 Date Recorded Body height Body mass index (BMI) Body weight Provider Name and Address Organization Details Last Updated DateTime 01/27/2023 180.34 cm 28.7 kg/m2 20789.03 g Jon Matthews MD [address] [facility],[address], [place], [address], [facility] 01/27/2023 11:47:37 Date Recorded Body height Body mass index (BMI) Body weight Provider Name and Address Organization Details Last Updated DateTime 07/28/2023 180.34 cm 28.7 kg/m2 05103.03 g Jon Matthews MD [address] [facility] [address], [place], [address], [facility] 07/28/2023 15:57:53 Date Recorded Body height Body mass index (BMI) Body weight Provider Name and Address Organization Details Last Updated DateTime 10/29/2023 180.34 cm 28.7 kg/m2 65364.03 g Moira Asif [facility] 10/29/2023 12:02:01 Date Recorded Body height Body mass index (BMI) Body weight Provider Name and Address Organization Details Last Updated DateTime 05/24/2024 180.34 cm 29.7 kg/m2 47621.17 g Merle Acosta [facility] 05/24/2024 11:42:03 Social History Question Answer Notes LastModified by Organizat ion Details LastModified Time Tobacco Smoking Status Former Smoker Orquidea garcia [facility] 10/17/2022 11:52:12 What Is Your Level Of Alcohol Consumption? Occasional Information not available 05/24/2024 What Is Your Level Of Caffeine Consumption? Moderate Information not available 05/24/2024 When Did You Quit Smoking? 18+yearssinjulian vazquez [email or web address] Information not available 10/17/2022 What Was The Date Of Your Most Recent Tobacco Screening? 05/24/2024 Information not available 05/24/2024 Do You Or Have You Ever Used Any Other Forms Of Tobacco Or Nicotine? No [email or web address] Information not available 10/17/2022 Sex: Unknown Functional Status None recorded. Mental Status None recorded. Family History Nothing Reported. Medical History Condition Response Diabetes N Sexually Transmitted Infection N Other N Bleeding Disorder N High Blood Pressure Y Kidney Stones N Cancer Y Lung Disease N Depression N High Cholesterol Y GERD/Acid Reflux N Heart Disease Y Immunizations Vaccine Type Date Status Provider Name and Address Organization Details Recorded Time Tdap 03/15/2024 completed Merle garcia [facility] 05/24/2024 11:42:10 zoster recombinant 05/08/2019 completed Tatum Sm justen null, [facility] 10/29/2023 10:35:37 zoster recombinant 07/08/2019 completed Tatum Iasbel justen null, [facility] 10/29/2023 10:35:37 Influenza, high-dose, quadrivalent, PF 09/01/2021 completed Tatum Yeung null, [facility] 10/29/2023 10:35:37 Influenza, adjuvanted, quadrivalent, PF 09/12/2022 completed Tatum Yeung null, [facility] 10/29/2023 10:35:37 COVID-19, mRNA, LNP-S, PF, 30 mcg/0.3 mL dose 01/09/2021 completed Tatum Yeung null, [facility] 10/29/2023 10:35:37 COVID-19, mRNA, LNP-S, PF, 30 mcg/0.3 mL dose 01/30/2021 completed Tatum Yeung null, [facility] 10/29/2023 10:35:37 COVID-19, mRNA, LNP-S, PF, 30 mcg/0.3 mL dose 09/01/2021 completed Tatum Yeung null, [facility] 10/29/2023 10:35:37 COVID-19, mRNA, LNP-S, bivalent, PF, 30 mcg/0.3 mL dose 09/25/2022 completed Tatum Yeung null, [facility] 10/29/2023 10:35:37 influenza, unspecified formulation 10/31/2010 completed Tatum Yeung null, [facility] 10/29/2023 10:35:37 Tdap 05/17/2014 completed Tatum Yeung null, [facility] 10/29/2023 10:35:37 Novel [id number], all formulations 11/17/2009 completed Tatum Yeung null, [facility] 10/29/2023 10:35:37 Pneumococcal conjugate PCV 13 09/22/2015 completed Tatum Yeung null, [facility] 10/29/2023 10:35:37 Influenza, high-dose, trivalent, PF 09/13/2019 completed Tatum Yeung null, [facility] 10/29/2023 10:35:37 Influenza, high-dose, trivalent, PF 09/15/2017 completed Tatum Yeung null, [facility] 10/29/2023 10:35:37 Influenza, high-dose, trivalent, PF 09/21/2018 completed Tatum Yeung null, [facility] 10/29/2023 10:35:37 Influenza, split virus, trivalent, preservative 09/18/2014 completed Tatum Yeung null, [facility] 10/29/2023 10:35:37 Influenza, split virus, trivalent, PF 09/07/2013 completed Tatum Yeung null, [facility] 10/29/2023 10:35:37 Influenza, split virus, trivalent, PF 09/09/2012 completed Tatum Yeung null, [facility] 10/29/2023 10:35:37 Influenza, split virus, trivalent, PF 09/11/2011 completed Tatum Yeung null, [facility] 10/29/2023 10:35:37 Influenza, split virus, quadrivalent, PF 09/19/2020 completed Tatum Yeung null, [facility] 10/29/2023 10:35:37 Influenza, split virus, quadrivalent, PF 09/22/2015 completed Tatum Yeung null, [facility] 10/29/2023 10:35:37 Influenza, split virus, quadrivalent, PF 10/18/2016 completed Tatum Yeung null, [facility] 10/29/2023 10:35:37 Influenza, split virus, quadrivalent, PF 11/17/2009 completed Tatum Yeung null, [facility] 10/29/2023 10:35:37 Influenza, high-dose, quadrivalent, PF 09/02/2023 completed Moira Asif null, [facility] 10/29/2023 12:02:05 COVID-19, mRNA, LNP-S, PF, berto-sucrose, 30 mcg/0.3 mL 10/16/2023 completed Moira Asif [facility], [facility] 10/29/2023 12:02:05 Past Encounters Encounter ID Performer Location Encounter Start Date Encounter Closed Date Diagnosis/Indication Diagnosis SNOMED-CT Code Diagnosis ICD10 Code [id number] Jon Matthews MD [address] ,[address] [place] [address] 10/17/2022 11:36:04 10/23/2022 08:13:00 Prostate specific antigen above reference range 035968481 R97.20 Malignant tumor of prostate 366754263 C61 [id number] Jon Matthews MD _[facility]elfina Duggan [address] [place] [id number] 01/24/2023 11:35:31 01/30/2023 10:06:04 Malignant tumor of prostate 664172787 C61 Prostate s pecific antigen above reference range 579567825 R97.20 Slowing of urinary stream 28622857 R39.12 [id number] MD ERIK [facility] [address] [place] [address] 01/27/2023 10:17:33 01/31/2023 13:12:52 Malignant tumor of prostate 288535200 C61 [id number] Jon Matthews MD _[place] [address] [place] [address] 07/28/2023 15:15:34 07/30/2023 11:22:27 Malignant tumor of prostate 024724479 C61 Slowing of urinary stream 99471289 R39.12 Nodule of lung 721155603 R91.1 [id number] Jon Matthews MD [facility] [address] [place] [address] 10/29/2023 11:41:08 10/30/2023 11:09:41 Malignant tumor of prostate 507964916 C61 Slowing of urinary stream 04369129 R39.12 [id number] Lurdes Jackson [facility] [address] [place] [address] 05/24/2024 10:47:36 06/08/2024 14:48:19 Malignant tumor of prostate 093091980 C61 Prostate s pecific antigen above reference range 230338207 R97.20 Health Concerns Section Related Observation LastModified by Organization Detai ls LastModified Time None Recorded Concern Status LastModified by Organization Details LastModified Time None Recorded Advance Directives Directive None Recorded Payers Encounter Date Sequence Insurance Name Policy Number Policy Carrera Covered Member ID Carrera Member ID Guarantor Name 01/24/2023 1 [employer] (MEDICARE REPLACEMENT/A DVANTAGE - PPO) Chace A Nordine [id number] Chace A Nordine 01/27/2023 1 [employer] (MEDICARE REPLACEMENT/A DVANTAGE - PPO) Chace A Nordine [id number] Chace A Nordine 07/28/2023 1 [employer] (MEDICARE REPLACEMENT/A DVANTAGE - PPO) Chace A Nordine [id number] Chace A Nordine 10/29/2023 1 [employer] (MEDICARE REPLACEMENT/A DVANTAGE - PPO) Chace A Nordine [id number] Chace A Nordine 05/24/2024 1 [employer] (MEDICARE REPLACEMENT/A DVANTAGE - PPO) Chace A Nordine [id number] Chace A Nordine Notes Date Note Type Note Provider Name and Address Organization Details Recorded Time 01/24/2023 text/html This visit was conducted by telephone due [...] and coordinate their care. Jon Matthews MD [address] [place] [address],[address], [address], [facility] 01/29/2023 22:40:27 01/27/2023 text/html HERE FOR NATALIYA Matthews MD [address] [place] [address],[address], [address], [facility] 01/28/2023 06:25:57 07/28/2023 text/html follow up appt Jon Matthews MD [address] [place] [address], [address], [facility] 07/28/2023 18:39:17 10/29/2023 text/html follow up appt Jon Matthews MD [address] [place] [address],[address] [address], [place], [address], [facility] 10/29/2023 19:29:07 05/24/2024 text/html [facility]/24[facility] 12:39:25
--- OUTSIDE RECORDS SUMMARY | 2024-10-22 09:27 | XMS_ITS ---
Author Organization [facility] Address [address] [place] [address] Care Team Providers Care Rv Repair Technician Name Role Phone Unavailable Unavailable Unavailable Surgery Details Not on file Complications Check Surgery Details section. Procedure Estimated Blood Loss Check Surgery Details section. Procedure Findings Check Surgery Details section. Procedure Specimens Taken Check Surgery Details section.
--- OUTSIDE RECORDS SUMMARY | 2024-10-22 09:27 | XMS_ITS | Clinical Summary ---
Author Organization [facility] Address [address] [place] [id number] Care Team Providers Care Health Policy Analyst Name Role Phone Elsewhere, Pcp Primary Care Provider Unavailabl e Source Comments Patient records contain information from all sites at [facility]. For routine questions regarding patient records, call [phone] during business hours, M-F 8:00 AM - 5:00 PM Central Time. Record requests for emergency care only can be directed to [phone] at any time.[facility] Social History Tobacco Use Types Packs/Day Years Used Date Smoking Tobacco: Never Assessed Nutrition Answer Date Recorded Nutrition: EVOO Fat Source Unknown 01/21 Nutrition: Servings of Fruits/Vegetables per Day Not on file 2021 Dental Answer Date Recorded Dental: Regular Dentist Unknown 01/21/20 21 Sex and Gender Information Value Date Recorded Sex Assigned at Not on file Legal Sex Male 7:11 PM DBA Gender Identity Not on file Sexual Orientation Not on file Plan of Treatment Health Maintenance Due Date Last Done Comments RSV vaccine - (32-36 weeks) or 60+ years (1 - 1-dose 75+ series) 2012 Pneumococcal vaccine (65+ years) (2 of 2 - PPSV23 or PCV20) 09/22/2016 09/22/2015 Depression Screening (Annual PHQ-2) 12/01/2023 Fall Risk Screen (Annual) 12/01/2023 COVID-19 Vaccine ( season) 2024 10/16/2023, 09/25/2022, 09/01/2021, Additional history exists Influenza Vaccine (#1) 2024 3, 09/12/2022, 09/01/2021, Additional history exists DTaP,Tdap,and Td Vaccines (3 - Td or Tdap) 03/15/2034 03/15/2024, 05/17/2014 Zoster Vaccines Completed 07/08/2019, 05/08/2019 IPV Vaccines Aged Out No longer eligi ble based on patient's age to complete this topic Insurance [employer] Care Teams Health Policy Analyst Relationship Specialty Start Date End Date Elsewhere, Pcp PCP - General Family Medicine 01/15/19
--- OUTSIDE RECORDS SUMMARY | 2024-10-22 09:27 | XMS_ITS | Encounter Summary ---
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 Dr. Boone took earmold impressions and set up a hearing aid fitting. On 10/15/2023, Dr. Mcgarry coupled the earmolds with his existing hearing aids, rather than fitting new devices. However, he requested a trial of Oticon devices, so impressions were taken on 03/12/24, and he was fit 04/07/2024, noting significant improvement in his hearing with the Oticon devices. He was fit with the following 04/07/2024: Hearing Aid Information Left Right Senior Environmental Practice Leader Oticon Oticon Model Intent 1 miniRITE R Intent 1 miniRITE R Style RITE (hgbiiwtl-rn-ugk-ear) RITE (uoaaoart-cz-rbj-ear) Serial Number [id number] Battery Size [place] Ion Rechargeable [place] Ion Rechargeable Coupling Size 2 100dB gain receivers, acrylic power bus dispatcher interstate mold SN:[id number] Size 2 100dB gain receivers, acrylic power bus dispatcher interstate mold SN:[id number] Warranty Date 04/22/2027 04/22/2027 Trial Period End Date 05/25/2024 05/24/2024 Phone Connectivity Paired to iPhone Accessory Information Serial Number End of Warranty Date Desktop Bead Wire Taper [id number] 04/22/2027 ConnectClip [id number] 04/22/2025 Today, Mr. Aguayo reports that he is not satisfied with his Oticon hearing aids. He states the right hearing aid is not working, and he does not like the new earmolds with canal locks. He prefers his previous earmolds which have longer canals and no canal lock. He also modified them by adding super glue to make them bulkier. He states he prefers the sound quality of his Jabra hearing aids. OBJECTIVE Otoscopic evaluation was performed and indicated scant cerumen and visualization of tympanic membranes bilaterally. ASSESSMENT/PLAN Inspection revealed his right wax filter is plugged. Following hearing aid cleaning, listening check indicates both hearing aids are in good working condition. The following components were replaced during cleaning: wax filters. Aided real-ear probe microphone measures showed good audibility when compared to NAL-NL2 targets for conversational speech inputs (65 dB SPL). Gain was adjusted for improved audibility and to more closely resemble the output of his Jabra hearing aids. He was counseled on strategies to communicate more effectively with his , and on appropriate expectations regarding his ability to understand speech in complex environments. He expressed understanding. Because Mr. Aguayo was not satisfied with the earmolds with canal locks, they were discarded. He will wear his old earmolds which he modified. He was informed that new impressions can be taken and earmolds ordered at a later date if desired. Follow-up in 6-12 months for routine hearing aid check is recommended. #1 Loss Hearing Sensorineural Bilateral Appointment assisted by Ryder Gonzalez, audiology card grinder helper Cosigned by Shirley Mcgarry Au.D., C.C.C.-A at 07/20/2024 3:52 PM CDT documented in this encounter Plan of Treatment Not on file documented as of this encounter Visit Diagnoses Diagnosis Loss Hearing Sensorineural Bilateral- Primary documented in this encounter Care Teams Revolving Inventory Clerk Relationship Specialty Start Date End Date Elsewhere, Pcp PCP - General Family Medicine 01/15/19 documented as of this encounter
--- OUTSIDE RECORDS SUMMARY | 2024-10-22 09:27 | XMS_ITS | Clinical Summary ---
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 Gender Identity Not on file Sexual Orientation Not on file Plan of Treatment Health Maintenance Due Date Last Done Comments Yearly Review of HCD 1987 RSV Vaccines (1 - 1-dose 75+ series) 2012 Pneumococcal 65+ (2 of 2 - P PSV23 or PCV20) 09/22/2016 09/22/2015 Adult Tetanus Booster 05/17/2024 05/17/2014 COVID-19 Vaccine (2023-2 5 season) 2024 09/25/2022, 09/01/2021, 01/30/2021, Additional history exists Influenza Vaccine (#1) 2024 , 09/19/2020, 09/13/2019, Additional history exists Zoster Vaccine Completed 07/08/2019, 05/08/2019 Insurance [facility] MEDIC[facility] Member Subscriber Plan / Payer (Ef fective 2022-Present) Name:Chace Aguayo Relation to Subscriber:Self Name:Chace Aguayo Payer ID:[id number] (NAIC) Type:Medicare Advantage Address: [place] [phone] Care Teams Marine Oil Terminal Superintendent Relationship Specialty Start Date End Date None, PCP - General 01/07/23
--- OUTSIDE RECORDS SUMMARY | 2024-10-22 09:27 | XMS_ITS | Referral Summary ---
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
--- OUTSIDE RECORDS SUMMARY | 2024-10-22 09:28 | XMS_ITS | Clinical Summary ---
Author Organization [facility] Address [place], [place] [address] Care Team Providers Care Turning And Beading Machine Operator Name Role Phone Julia Gallardo MD Primary Care Provider [phone] Allergies No known active allergies Medications Medication Sig Dispensed Refills Start Date End Date Status DAILY MULTIVITAMIN TAB Once a day Active NITROGLYCERIN 0.4 MG SUBLINGUAL TAB 0.4 mg Sublingual EVERY 5 MINUTES NEEDED 1 hx 0 04/21/2009 Active tamsulosin (FLOMAX) 0.4 mg capsuleIndications :Slow urinary stream .take 2 capsules daily(0.8mg) 180 capsule 3 04/19/2014 Active Additional Information Patient taking differently: 0.4 mg Oral BID, (No instructions reported), Informant: Patient's Med List, Reported on 05/20/2024 omeprazole (PRILOSEC) 40 mg Delayed-Release capsule Take 40 mg by mouth once daily before a meal. Active simvastatin (ZOCOR) 40 mg tablet Take 40 mg by mouth once daily with evening meal. Active fluticasone (50 mcg per actuation) nasal solution (FLONASE) Inhale 1 Hornbeak into affected nostril(s) once daily. Active apixaban (ELIQUIS) 5 mg tabletIndications: Persistent atrial fibrillation (HC) Take 1 Tablet (5 mg) by mouth two times daily. 60 Tablet 5 06/10/2024 Active metoprolol succinate (TOPROL XL) 25 mg Sustained-Release tabletIndications: Persistent atrial fibrillation (HC) Take one tablet daily as needed for HR > 100 in atrial fibrillation 90 Tablet 4 08/26/2024 Active losartan-hydrochlo rothiazide, 50-12.5 mg, (Hyzaar) 50-12.5 mg tabletIndications: HTN (hypertension) Take 1 Tablet by mouth once daily. 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 Normal left ventricular size and function with normal wall motion Ejection fraction is 55%. Patient exercised for 12 minutes 50 seconds on the Alejandro protocol with no symptoms or EKG changes. Coronary artery disease 04/21/2009 Overview (04/21/2009): -IA 1999 -s/p PTCA of OM3 2000 at [facility] -neg treadmill 2001 -Asx positive stress nuclear scan - OM3 patent but proximal RCA severely dz'd => stented 04/21/09 Hypertension 04/21/2009 Dyslipidemia + high Lpa-45 04/21/2009 History of tobacco use 04/21/2009 Encounters Date Type Department Care Team Description 08/26/2024 8:30 AM CDT Office Visit [facility] [address] [place] [address] Jac Gomez MD from Last 3 Months Social History Tobacco Use Types Packs/Day Years Used Date Smoking Tobacco: Former Smokeless Tobacco: Never Tobacco Cessation:Counseling Given: Yes Comments:1989 Alcohol Use Standard Drinks/Week Comments Yes 5.8 (1 standard drink = 0.6 oz p ure alcohol) daily Social Connections Answer Date Recorded Frequency of Communication with Friends and Fami ly Not on file 05/13/2024 Financial Resource Strain Answer Date R ecorded Difficulty of Paying Living Expenses Not on file 12/01/2021 Difficulty of Paying Living Expenses Not on file 12/01/2021 Sex and Gender Information Value Date Recorded Sex Assigned at Not on file Gender Identity Not on file Sexual Orientation Not on file Obstetrics History Last Filed Vital Signs Vital Sign Reading Time Taken Comments Blood Pressure 142/98 06/10/2024 10:30 AM CDT Pulse 80 06/10/2024 10:30 AM CDT Temperature 36.1 C (97 F) 06/10/2024 7:00 AM CDT Respiratory Rate 16 06/10/2024 10:30 AM CDT Oxygen Saturation 96% 06/10/2024 10:30 AM CDT Inhaled Oxygen Concentration - - Weight 97.3 kg (214 lb 6.4 oz) 06/10/2024 7:00 A M CDT Height 180.3 cm (5' 11) 06/10/2024 7:00 AM CDT Body Mass Index 29.9 06/10/2024 7:00 AM CDT Plan of Treatment Health Maintenance Due Date Last Done Comments Tdap 1948 Depression screening for age 12+ 1949 BMI (ht and wt on same day) for age 18+ 1955 Tetanus booster 1957 Zoster (shingles) series for age 50+ (1 of 2) 1987 Medicare Wellness for age 65+ 2002 Pneumococcal series for age 65+ (1 of 1 - PCV) 2002 RSV vaccine for adults or (1 - 1-dose 75+ series) 2012 COVID-19 vaccine series ( season) 2024 10/16/2023, 09/25/2022, 09/01/2021, Additional history exists Influenza for age 65+ 08/01/2024 Advance Directives Documents on File Type Date Recorded Patient Inter Com Installer Expl anation Healthcare Directive 05/27/2014 2:23 PM Healthcare Directive 05/23/2014 7:53 AM * Full Code (Latest Code Status on File) Date Activated Date Inactivated Comments 06/10/2024 9:53 AM 06/10/2024 1:06 PM Question Answer Comments Code Status Discussion: Reviewed Preferences * Full Code Date Activated Date Inactivated Comments 04/21/2009 8:24 AM 04/22/2009 12:52 PM Care Teams Turning And Beading Machine Operator Relationship Specialty Start Date End Date Julia Gallardo MD [address] [place] [address] PCP - General 05/17/24
[2024-10-22 09:56] VITALS: BMI 29.9
[2024-10-22 10:17] VITALS: BP 144/90; PULSE 74; RESP 16; TEMP 36.3; O2SAT 99
[2024-10-22] MEDS: SODIUM CHLORIDE 0.9 % (FLUSH) 10 ML SYRINGE IVF (10:18)
[2024-10-22] MEDS: OXYMETAZOLINE 0.05% NASAL SPRAY 2 SPRAY NOSTRIL-B (10:21)
[2024-10-22] MEDS: 0.9 % SODIUM CHLORIDE 500 ML 500 ML 100 ML IV (10:42)
[2024-10-22] MEDS: BUPIVACAINE 0.5 %/EPI 1:200K 30 ML INJECTION (11:29)
[2024-10-22] MEDS: MUPIROCIN 1 GM PACKET 1 APPLIC TOPICAL (11:29)
[2024-10-22] MEDS: COCAINE HCL 4 % 4 ML SOLUTION NOSTRIL-B (11:29)
[2024-10-22] MEDS: AYR SALINE NASAL GEL 1 APPLIC NOSTRIL-B (11:31)
--- NOTE | 2024-10-22 11:40 | W.ANESCHARGE ---
Anesthesia Charges Start Date/Time Anesthesia Start Date: 10/22/24 Anesthesia Start Time: 11:16 Stop Date/Time Anesthesia Stop Date: 10/22/24 Anesthesia Stop Time: 11:47 Summary Extremes of Age - Over 70 or under 1: MDA
[2024-10-22 11:45] VITALS: BP 129/70; PULSE 75; RESP 16; TEMP 36.1; O2SAT 100
[2024-10-22 12:00] VITALS: BP 150/88; PULSE 72; RESP 16; O2SAT 97
[2024-10-22 12:15] VITALS: BP 160/90; PULSE 72; RESP 16; O2SAT 97
[2024-10-22 12:30] VITALS: BP 148/85; PULSE 75; RESP 16; O2SAT 97
--- NOTE | 2024-10-22 12:51 | W.PM.ENTPROC ---
Procedure Note Date of procedure: 10/22/24 Procedure: Preop diagnosis deviated septum bilateral anterior, inferior turbinate hypertrophy bilateral, nasal obstruction Postoperative diagnosis same Procedure nasal septoplasty, intramural cautery inferior turbinates bilateral Under attended local anesthesia patient was prepped and draped usual fashion. The nose was decongested with cocaine pledgets and the anterior septum injected. A right hemitransfixion incision was made and a very short 0.5 cm left anterior tunnel was created. I just excise the redundant cartilage in this location which immediately opened up his left nasal airway. On the right side I was able his septum was deflected in areas 3 and 4 and is able to simply infracture that. The not close the hemitransfixion because he may be going back on blood thinner. Merocel packing soaked in Bactroban was placed in each and nasal cavity. This will be removed pre postoperatively before departure from the hospital today. The patient procedure well was taken recovery in satisfactory a garcia blood loss less than 5 mL. Surgeon: Jonathan Mancilla MD
== END 2024-10-22 13:15 | disposition home or self-care (01) ==
LOC: OR 09:22
PROVIDERS: PCP Family Medicine; Visit Provider Otolaryngology
PROC: (CPT 30520; principal; 2024-10-22 11:00)
DX: J34.2 Deviated nasal septum (principal); J34.3 Hypertrophy of nasal turbinates; J34.89 Other specified disorders of nose and nasal sinuses
CPT/HCPCS: 30520; 30802; 00160; 99100; A9270; J2704; J3490; J7030

== ENCOUNTER 2025-04-08 08:01 | Outpatient (CLI) | payer MEDICAID, SELFPAY | END 2025-04-08 08:02 | disposition home or self-care (01) | LOC: NFLDREF 04-09 08:14 | PROVIDERS: PCP Family Medicine; Referring Provider Family Medicine; Visit Provider Family Medicine | DX: I10 Essential (primary) hypertension (principal); R53.83 Other fatigue; D50.9 Iron deficiency anemia, unspecified; Z12.5 Encounter for screening for malignant neoplasm of prostate | CPT/HCPCS: 80053; 82043; 82570; G0103 ==

== ENCOUNTER 2025-04-24 19:38 | Outpatient (CLI) | payer MEDICARE, SELFPAY ==
--- NOTE | 2025-05-10 11:29 | W.PM.SLEEP ---
Sleep Study Details Details Interpreting Provider: Charo Date of Sleep Study: 04/24/25 Sleep Study Details: STUDY TYPE:? Hospital-based attended ? BMI:? 29.3 ORDERING PROVIDER:? Margarita INDICATION:? Concern about sleep apnea ? SLEEP SUMMARY:? 254 minutes sleep time RESPIRATORY SUMMARY:? Mean oxygen awake 96 asleep 96 minimum 86 2 minutes oxygen between 80 and 88% AHI 17.2 per CMS guideline 33.5 per rule 1A. Note that the vast majority of the study was done in the nonsupine position REM AHI 10 PERIODIC LIMB MOVEMENTS OF SLEEP:? None CARDIAC:? Awake 62 asleep 56 no arrhythmias noted IMPRESSION:? Moderate obstructive sleep apnea RECOMMENDATION: Treatment options include CPAP, dental appliance. Would favor CPAP.
== END 2025-04-24 19:39 | disposition home or self-care (01) ==
LOC: SLEEP 19:41
PROVIDERS: PCP Family Medicine; Visit Provider Family Medicine
DX: G47.33 Obstructive sleep apnea (adult) (pediatric) (principal)
CPT/HCPCS: 95810

== ENCOUNTER 2025-04-26 07:53 | Outpatient (CLI) | payer MEDICARE, SELFPAY ==
[2025-04-26] MEDS: REGADENOSON 0.4 MG/5 ML SYRINGE IVP (10:08)
[2025-04-26] MEDS: SODIUM CHLORIDE 0.9 % (FLUSH) 10 ML SYRINGE IVF (10:08)
[2025-04-26 10:09] VITALS: BP 156/78; PULSE 92; RESP 16
--- NOTE | 2025-04-26 12:20 | W.PM.STED ---
Stress Test Note Date Date Seen: 04/26/25 Date of test: 04/26/25 Providers Primary care provider: Julia Gallardo Stress test physician: Isaías Adams Stress Test Note Stress test ordered: Lexiscan Indication for test: Coronary artery disease Stress test medicine: Lexiscan Results discussion: This pleasant patient presents for the above test after discussion the risks benefits and side effects, he is willing to proceed, cardiac stress test medical history form is reviewed in detail, he is very hard hearing. Pretest EKG shows right bundle bunch block, controlled atrial fibrillation with a ventricular rate of 61, blood pressure 159/98. Standard Lexiscan walking protocol was done for 5 minute. , maximum heart rate was 122, patient was asymptomatic, review of the tracing did not show any deviation from baseline, no evidence of ischemia Impression: Negative electrographic portion of Lexiscan, patient remained in atrial fibrillation Follow up suggested: Await nuclear imaging review. Clinical correlation with this will be needed, patient left this testing facility in good condition there were no complications.
== END 2025-04-26 07:54 | disposition home or self-care (01) ==
LOC: STRESS 07:54
PROVIDERS: PCP Family Medicine; Visit Provider Internal Medicine Cardiovascular Disease
DX: I25.10 Atherosclerotic heart disease of native coronary artery without angina pectoris (principal); I48.91 Unspecified atrial fibrillation; I35.1 Nonrheumatic aortic (valve) insufficiency; I34.0 Nonrheumatic mitral (valve) insufficiency; I51.7 Cardiomegaly; R06.00 Dyspnea, unspecified; R53.83 Other fatigue
CPT/HCPCS: 78452; 93016; 93017; A9500; J2785

== ENCOUNTER 2025-04-27 13:18 | Outpatient (CLI) | payer MEDICARE, SELFPAY | END 2025-04-27 13:19 | disposition home or self-care (01) | LOC: RAD 13:19 | PROVIDERS: PCP Family Medicine; Visit Provider Internal Medicine Cardiovascular Disease | DX: I48.91 Unspecified atrial fibrillation (principal); I51.7 Cardiomegaly; I34.0 Nonrheumatic mitral (valve) insufficiency; I07.1 Rheumatic tricuspid insufficiency; R53.83 Other fatigue; I25.10 Atherosclerotic heart disease of native coronary artery without angina pectoris; R06.00 Dyspnea, unspecified | CPT/HCPCS: 93306 ==

== ENCOUNTER 2025-07-13 08:30 | Outpatient (CLI) | payer MEDICARE, SELFPAY ==
[2025-07-13 14:56] LABS: Chloride* 104 mmol/L (96-114); Sodium* 140 mmol/L (135-149)
[2025-07-13 14:57] LABS: Potassium* 4.3 mmol/L (3.6-5.1)
[2025-07-13 14:59] LABS: Blood Urea Nitrogen* 19 mg/dL (7-30); Creatinine* 1.0 mg/dL (0.5-1.5); Estimated Glomerular Filt Rate 72 ml/min
[2025-07-13 15:00] LABS: Anion Gap 5 mEq/L (7-15); Calcium* 9.6 mg/dL (8.4-10.6); Carbon Dioxide* 31 mmol/L (20-32); Glucose* 142 mg/dL (60-115)
== END 2025-07-13 08:31 | disposition home or self-care (01) ==
LOC: NPINS 08:32
PROVIDERS: PCP Family Medicine; Visit Provider Internal Medicine
DX: I50.32 Chronic diastolic (congestive) heart failure (principal)
CPT/HCPCS: 80048

== ENCOUNTER 2025-09-16 09:45 | Outpatient (CLI) | payer MEDICARE, SELFPAY | END 2025-09-16 09:46 | disposition home or self-care (01) | LOC: NFLDREF 09-22 12:56 | PROVIDERS: PCP Family Medicine; Referring Provider Family Medicine; Visit Provider Family Medicine | DX: C61 Malignant neoplasm of prostate (principal); I10 Essential (primary) hypertension | CPT/HCPCS: 80053; G0103 ==